=== PATIENT | male | born 1935 | race Caucasian/White ===

== ENCOUNTER 2017-06-12 12:43 | Day surgery (SDC) | payer MEDICARE, OTHER ==
[2006-10-22 11:25] VITALS: BP 145/69
[~2017-06-12] VITALS: Ht 172.7 cm; Wt 100.8 kg
[2017-06-12] VITALS (9 sets, daily range): BP systolic 95–146; BP diastolic 53–65; PULSE 56–64; TEMP 97.3–98.2
[~2017-06-12 12:43] MED LIST: ASPIRIN 81M81 MG/TA2 PO; B-121000 MCG PO; BENAZEPRIL; BENAZEPRIL20 MG PO; BETAPACE 80MG80 MG PO; BRILINTA90 MG PO; CALCIUM 600600 MG PO; CALCIUM600 M1 PO; CEPHALEXIN500 M1 PO; CLARITIN 1010 MG/TAB PO; CLARITIN10 MG PO; COUMADIN; COUMADIN 3MG3 MG/TAB PO; COUMADIN4 MG PO; CPAP; DETROL LA4 PO; DOXYCYCLINE 10100 MG PO; FLAXSEED OIL1000 MG PO; FOLIC ACID 11 MG/TA1 PO; FOLIC ACID1 MG PO; HCTZ; HYDROCHLOR50 MG PO; HYDROCORTISO28.35 GM TOP; HYGROTON50 MG PO; IMDUR 60MG60 MG/TAB PO; LOTENSIN40 MG PO; LOVENOX 100100 MG/ML SQ; LOVENOX 6060 MG/0.6 SQ; MONODOX100 PO; MOVANTIK25 MG PO; MULTIPLE VITAMI1 CTB PO; MULTIPLE VITAMI1 TA5 PO; MYRBETR25MG PO; NITROSTAT0.4 MG/TAB SL; NORCO 325 MG-51 TAB PO; NORCO 325 MG-7.1 TAB PO; NORVASC 5MG5 MG/TAB PO; OMEGA 31000 MG PO; PROTONIX 40MG T40 MG PO; RESTASIS 60VL IO; SOTALOL80 MG PO; THIAMINE 1100 MG/TAB PO; TOPROL XL100 MG PO; TOPROL XL50 MG PO; VITAMIN B COMPL1 T16 PO; VITAMIN B COMPL1 TA1 PO; VITAMIN B-100 MG/TAB PO; VITAMIN B-1000 MCG/T PO; VITAMIN B-6100 MG PO; VITAMIN C500 MG PO; WARFARIN4 MG PO; ZOCOR 10MG10 MG PO; ZOCOR10 MG PO
[2017-06-12] MEDS ORDERED: NORCO 325 MG-51 TAB PO (14:28)
[2017-06-12] MEDS ORDERED: DOXYCYCLINE 10100 MG PO (14:34)
[2017-06-12] MEDS ORDERED: HYSINGLA20 PO (14:41)
[2017-06-12] MEDS ORDERED: LOTEMAX 10 ML10 ML OP (14:41)
[2017-06-12] MEDS ORDERED: PROAIR HFA0.09 MG/AC IH (14:44)
[2017-06-12] MEDS ORDERED: FLONASEALLERGY NS (14:45)
[2017-06-13 00:58] VITALS: BP 117/51; PULSE 61; TEMP 96.6
[2017-06-13 06:15] VITALS: BP 145/58; PULSE 67; TEMP 98.9
[2017-06-13 10:24] VITALS: BP 128/55; PULSE 59; TEMP 98.2
== END 2017-06-13 13:00 | disposition home or self-care (01) ==
LOC: SDCO 12:43 → SURG 16:59 → SDCO 17:00
DX: N30.41 Irradiation cystitis with hematuria (principal); I48.91 Unspecified atrial fibrillation; Z79.01 Long term (current) use of anticoagulants; J45.909 Unspecified asthma, uncomplicated; M19.90 Unspecified osteoarthritis, unspecified site; M54.9 Dorsalgia, unspecified; C44.612 Basal cell carcinoma of skin of right upper limb, including shoulder; I25.10 Atherosclerotic heart disease of native coronary artery without angina pectoris; I10 Essential (primary) hypertension; E66.9 Obesity, unspecified; C61 Malignant neoplasm of prostate; G58.8 Other specified mononeuropathies; G47.30 Sleep apnea, unspecified; M48.00 Spinal stenosis, site unspecified
CPT/HCPCS: OP; A9284; J0690; J1100; J2405; J2704; J3010; J7030; Q9967

== ENCOUNTER → 2018-09-26 | Outpatient (CLI) | payer MEDICARE, OTHER ==
[2006-10-22 11:25] VITALS: BP 145/69
[~2018-09-26] VITALS: Ht 172.7 cm; Wt 102.3 kg
[~2018-09-26] MED LIST changes: +FLONASEALLERGY NS; +HYSINGLA20 PO; +LOTEMAX 10 ML10 ML OP; +PROAIR HFA0.09 MG/AC IH
[2018-09-26 09:20] VITALS: BP 139/67; PULSE 56; TEMP 96.8
== END ==
LOC: COL.ER 09:10 → COL.LAB 09:11 → EDSTATUS 09:31
PROVIDERS: Emergency Medicine
DX: D68.59 Other primary thrombophilia (principal)

== ENCOUNTER 2019-03-26 08:38 | Emergency (ER) | payer MEDICARE, OTHER ==
[2006-10-22 11:25] VITALS: BP 145/69
[~2019-03-26] VITALS: Ht 172.7 cm; Wt 102.2 kg
[2019-03-26 08:42] VITALS: BP 183/84; TEMP 98.1
[2019-03-26 09:20] LABS: BASO % 0.3 % (0.0-2.0); EOS # 0.2 (0.0-0.7); EOS % 2.4 % (0-4.0); GRAN # 5.6 (1.4-6.5); GRAN % 60.1 % (42.2-75.2); HEMOGLOBIN 15.1 g/dl (13.5-18.0); LYMPH # 2.7 (1.2-3.4); LYMPH % 28.8 % (20.0-51.0); MEAN CELL VOLUME 87 fl (80.0-100.0); MEAN CORPUSCULAR HEMOGLOBIN 29 pg (27.0-31.0); MEAN CORPUSCULAR HGB CONC 34 g/dl (33.0-37.0); MEAN PLATELET VOLUME 9.1 fl (7.4-10.4); MONO # 0.7 (0.1-0.6); MONO % 7.9 % (1.7-9.3); PLATELET COUNT 186 K/mm3 (130-400); RED BLOOD COUNT 5.16 M/mm3 (4.20-5.60); REDCELL DISTRIBUTION WIDTH-CV 14.7 % (11.5-14.5)
[2019-03-26 09:32] LABS: INR 3.2 (0.8-3.0); PROTHROMBIN TIME 35.9 SECONDS (9.7-12.8)
[2019-03-26] MEDS ORDERED: RESTASIS MULTI5.5 ML OP (09:38)
[2019-03-26] MEDS ORDERED: RT ADVAIR HFA 1112 G IH (09:40)
[2019-03-26 10:00] VITALS: PULSE 56
== END 2019-03-26 10:05 | disposition home or self-care (01) ==
LOC: COL.ER 08:38
PROVIDERS: Nurse Practitioner
DX: S50.811A Abrasion of right forearm, initial encounter (principal); R79.1 Abnormal coagulation profile; I48.91 Unspecified atrial fibrillation; I10 Essential (primary) hypertension; I25.10 Atherosclerotic heart disease of native coronary artery without angina pectoris; Z87.891 Personal history of nicotine dependence; Z79.01 Long term (current) use of anticoagulants; Z79.51 Long term (current) use of inhaled steroids; W22.8XXA Striking against or struck by other objects, initial encounter

== ENCOUNTER 2019-04-23 13:36 | Emergency (ER) | payer MEDICARE, OTHER ==
[2006-10-22 11:25] VITALS: BP 145/69
[~2019-04-23] VITALS: Ht 172.7 cm; Wt 100.0 kg
[~2019-04-23 13:36] MED LIST changes: +RESTASIS MULTI5.5 ML OP; +RT ADVAIR HFA 1112 G IH
[2019-04-23 13:51] VITALS: TEMP 98.3
[2019-04-23 15:17] LABS: BASO % 0.6 % (0.0-2.0); EOS # 0.2 (0.0-0.7); EOS % 2.8 % (0-4.0); GRAN # 3.8 (1.4-6.5); GRAN % 56.1 % (42.2-75.2); HEMATOCRIT 43.8 % (42.0-52.0); HEMOGLOBIN 14.6 g/dl (13.5-18.0); LYMPH % 30.2 % (20.0-51.0); MEAN CELL VOLUME 89 fl (80.0-100.0); MEAN CORPUSCULAR HEMOGLOBIN 30 pg (27.0-31.0); MEAN CORPUSCULAR HGB CONC 33 g/dl (33.0-37.0); MEAN PLATELET VOLUME 9.4 fl (7.4-10.4); MONO # 0.7 (0.1-0.6); MONO % 9.7 % (1.7-9.3); PLATELET COUNT 176 K/mm3 (130-400); RED BLOOD COUNT 4.94 M/mm3 (4.20-5.60); REDCELL DISTRIBUTION WIDTH-CV 14.5 % (11.5-14.5)
[2019-04-23 15:19] LABS: INR 4.2 (0.8-3.0)
[2019-04-23 15:22] LABS: PROTHROMBIN TIME 50.7 SECONDS (9.7-12.8)
[2019-04-23 15:25] LABS: CALCIUM 8.5 mg/dL (8.4-10.2); CREATININE, serum 0.79 (0.66-1.25); POTASSIUM 3.9 mmol/L (3.4-5.0)
[2019-04-23 17:10] VITALS: BP 115/65; PULSE 70
== END 2019-04-23 17:14 | disposition home or self-care (01) ==
LOC: COL.ER 13:36
PROVIDERS: Emergency Medicine
DX: S09.90XA Unspecified injury of head, initial encounter (principal); S01.511A Laceration without foreign body of lip, initial encounter; S20.212A Contusion of left front wall of thorax, initial encounter; R79.1 Abnormal coagulation profile; Z79.01 Long term (current) use of anticoagulants; Z79.51 Long term (current) use of inhaled steroids; W01.0XXA Fall on same level from slipping, tripping and stumbling without subsequent striking against object, initial encounter; Y92.009 Unspecified place in unspecified non-institutional (private) residence as the place of occurrence of the external cause

== ENCOUNTER 2019-08-13 18:49 | Inpatient (IN) | payer MEDICARE, OTHER ==
[2019-08-13] VITALS (42 sets, daily range): BP systolic 103–105; BP diastolic 69–75; PULSE 118; TEMP 97.8; O2SAT 95–97
[~2019-08-13] VITALS: Ht 172.7 cm; Wt 100.7 kg
[2019-08-13 19:23] LABS: BASO % 0.2 % (0.0-2.0); EOS % 0.1 % (0-4.0); GRAN # 8.3 (1.4-6.5); HEMATOCRIT 50.4 % (42.0-52.0); HEMOGLOBIN 16.7 g/dl (13.5-18.0); LYMPH # 2.5 (1.2-3.4); LYMPH % 20.5 % (20.0-51.0); MEAN CELL VOLUME 89 fl (80.0-100.0); MEAN CORPUSCULAR HEMOGLOBIN 29 pg (27.0-31.0); MEAN CORPUSCULAR HGB CONC 33 g/dl (33.0-37.0); MEAN PLATELET VOLUME 9.5 fl (7.4-10.4); MONO # 1.2 (0.1-0.6); MONO % 9.6 % (1.7-9.3); PLATELET COUNT 213 K/mm3 (130-400); RED BLOOD COUNT 5.69 M/mm3 (4.20-5.60); REDCELL DISTRIBUTION WIDTH-CV 13.5 % (11.5-14.5)
[2019-08-13 19:28] LABS: PROTHROMBIN TIME 11.6 SECONDS (9.7-12.8)
[2019-08-13 19:34] LABS: ALANINE AMINOTRANSFERASE 15 U/L (21-72); ALBUMIN 4.2 gm/dL (3.5-5.0); ALKALINE PHOSPHATASE 52 U/L (50-136); ANION GAP 8 mmol/L (7-16); AST,SGOT 25 U/L (15-37); BILIRUBIN,TOTAL 0.6 mg/dL (0.0-1.0); BLOOD UREA NITROGEN 22 mg/dL (9-20); CALCIUM 9.3 mg/dL (8.4-10.2); CARBON DIOXIDE 26 mmol/L (22-30); CHLORIDE 104 mmol/L (98-107); CREATININE, serum 0.77 (0.66-1.25); GLUCOSE 105 mg/dL (74-106); POTASSIUM 4.4 mmol/L (3.4-5.0); SODIUM 138 mmol/L (137-145); TOTAL PROTEIN 7.3 gm/dL (6.4-8.2)
[2019-08-13 19:54] LABS: TROPONIN-I < 0.012 ng/mL (0.000-0.035)
[2019-08-13] MEDS ORDERED: BRILINTA90 MG PO (20:20)
[2019-08-13] MEDS ORDERED: ASPIRIN E.C. 8181 MG PO (20:21)
--- NOTE | 2019-08-13 21:12 | NUR ---
Arrived to the unit via stretcher; alert and oriented and in no distress. Attached to all monitors. HR A-fib RVR ranging 90-140's. Garrison briceño currently running.
--- NOTE | 2019-08-13 22:51 | NUR ---
Patient placed CPAP independenly. On home settings.
[2019-08-13 23:03] LABS: COLLECTION METHOD CATHETER
[2019-08-13 23:10] LABS: PH 6 (5-8); SQUAMOUS EPITHELIAL None Seen /hpf; URINE APPEARANCE Clear; URINE BACTERIA None Seen /hpf; URINE BILIRUBIN Negative (NEGATIVE); URINE BLOOD Negative (NEGATIVE); URINE COLOR Straw; URINE GLUCOSE Negative (NEGATIVE); URINE KETONE Negative (NEGATIVE); URINE LEUKOCYTE ESTERASE Negative (NEGATIVE); URINE NITRATE Negative (NEGATIVE); URINE PROTEIN(semi-quant) Negative (NEGATIVE); URINE RBC 0-2 /hpf; URINE UROBILINOGEN Negative (NEGATIVE)
[2019-08-13] MEDS ORDERED: [UNRECOGNIZED DRUG - OTHER] TP (23:42)
[2019-08-13] MEDS ORDERED: SPIRIVA RESPIMAT4 GM IH (23:43)
[2019-08-13] MEDS ORDERED: NITROSTAT0.3 MG SL (23:49)
[2019-08-13] MEDS ORDERED: FLONASE NASAL S16 GM NS (23:52)
[2019-08-14] VITALS (723 sets, daily range): BP systolic 71–156; BP diastolic 60–109; PULSE 68–120; TEMP 97.6–98.2; O2SAT 88–97
--- NOTE | 2019-08-14 00:33 | NUR ---
Notified hospitalist regarding low BP readings and hr still ranging 100-140's on cardizem drip. Unable to titrate up due to hypotension. Patient asymptomatic otherwise. Currently wearing CPAP with no complaints. Called lab to obtain Troponin. Recived orders for digoxin and midodrine PO now.
--- NOTE | 2019-08-14 04:00 | NUR ---
Resting in bed with eyes shut; no complaints at this time.
--- NOTE | 2019-08-14 07:20 | NUR ---
Report received from Chanda MASTERS and care resumed.
[2019-08-14 07:44] LABS: HEMATOCRIT 48.5 % (42.0-52.0); HEMOGLOBIN 16.4 g/dl (13.5-18.0); MEAN CELL VOLUME 89 fl (80.0-100.0); MEAN CORPUSCULAR HEMOGLOBIN 30 pg (27.0-31.0); MEAN CORPUSCULAR HGB CONC 34 g/dl (33.0-37.0); MEAN PLATELET VOLUME 9.6 fl (7.4-10.4); PLATELET COUNT 209 K/mm3 (130-400); RED BLOOD COUNT 5.45 M/mm3 (4.20-5.60); REDCELL DISTRIBUTION WIDTH-CV 13.8 % (11.5-14.5)
[2019-08-14 07:55] LABS: ANION GAP 6 mmol/L (7-16); BLOOD UREA NITROGEN 20 mg/dL (9-20); CALCIUM 8.9 mg/dL (8.4-10.2); CARBON DIOXIDE 25 mmol/L (22-30); CHLORIDE 107 mmol/L (98-107); CREATININE, serum 0.66 (0.66-1.25); GLUCOSE 110 mg/dL (74-106); POTASSIUM 4.2 mmol/L (3.4-5.0); SODIUM 138 mmol/L (137-145)
[2019-08-14 08:09] LABS: TROPONIN-I < 0.012 ng/mL (0.000-0.035)
--- NOTE | 2019-08-14 10:21 | NUR ---
Dr Mandujano notified of consult and in to see pt at this time.
--- NOTE | 2019-08-14 11:38 | NUR ---
Plan: To return home with Sammie as care [phone]. is also listed as patients emergency support. DPOA is also .They reside in [facility]. Assess: SW met with patient and was also present. Patient gave permission to discuss information in front of . Patient reports that he uses a walker to get around at home as well as a CPAP machine and an inhaler. Patient reports that her PCP is Dr. Morocho( who will be retiring), and then Dr. George, with patient alreadyig having a follow up appointment last week. Patient reports that she gets her medications from [facility] [address], and he uses [facility], with some problems obtaining medications from [facility]. Patient denied having any current care concerns, and denied a need for home health services currently. Plan: No additional concerns identified at this time. We did discuss future plans, and the [facility] indicated [facility] Patient educated on community resources and supports.
--- NOTE | 2019-08-14 14:27 | NUR ---
Report given to Mary Beth MASTERS. Pt to transfer to room 356 with tele. Will continue to follow.
--- NOTE | 2019-08-14 15:00 | NUR ---
Pt having pauses, verbal order per Dr Cuellar to stop Garrison.
--- NOTE | 2019-08-14 19:01 | NUR ---
Report given to Chanda MASTERS and care transfered.
--- NOTE | 2019-08-14 23:50 | NUR ---
Assisted to use the urinal. Patient placed CPAP per home settings after toileting. Dr. Mcghee notified regarding continued tachycardia. Ok with HR unless sustained greater thatn 140's. Will continue to monitor.
[2019-08-15] VITALS (189 sets, daily range): BP systolic 125–179; BP diastolic 58–82; PULSE 52–65; TEMP 97.6–98; O2SAT 81–97
--- NOTE | 2019-08-15 00:45 | NUR ---
Converted to SR; confirmed via EKG. HR 55-60. Patient has no concerns at this time.
[2019-08-15 05:52] LABS: BASO % 0.2 % (0.0-2.0); EOS # 0.2 (0.0-0.7); EOS % 1.7 % (0-4.0); GRAN # 6.8 (1.4-6.5); GRAN % 58.8 % (42.2-75.2); HEMATOCRIT 51.3 % (42.0-52.0); LYMPH # 3.3 (1.2-3.4); LYMPH % 28.9 % (20.0-51.0); MEAN CELL VOLUME 89 fl (80.0-100.0); MEAN CORPUSCULAR HEMOGLOBIN 29 pg (27.0-31.0); MEAN CORPUSCULAR HGB CONC 33 g/dl (33.0-37.0); MEAN PLATELET VOLUME 9.7 fl (7.4-10.4); MONO # 1.1 (0.1-0.6); MONO % 9.4 % (1.7-9.3); PLATELET COUNT 187 K/mm3 (130-400); RED BLOOD COUNT 5.79 M/mm3 (4.20-5.60); REDCELL DISTRIBUTION WIDTH-CV 13.7 % (11.5-14.5)
[2019-08-15 06:04] LABS: CALCIUM 9.2 mg/dL (8.4-10.2); CREATININE, serum 0.83 (0.66-1.25); POTASSIUM 4.4 mmol/L (3.4-5.0)
--- NOTE | 2019-08-15 06:17 | NUR ---
Assisted to use the urinal at bedside. Requested to dangle for a few minutes,then assisted back to bed. Denies any complaints at this time.
--- NOTE | 2019-08-15 09:42 | NUR ---
Dr Park in to see pt. Pt being set up at this time for loop recorder placement.
[2019-08-15] MEDS ORDERED: BETAPACE 120MG120 MG PO (10:58)
[2019-08-15] MEDS ORDERED: CEPHALEXIN500 M1 PO (11:12)
[2019-08-15] MEDS ORDERED: ELIQUIS 5MG PO (11:14)
--- NOTE | 2019-08-15 11:29 | NUR ---
Initial visit; Patient and his thanked Oil Tank Car Cleaner for looking in on Nickolas, offering comfort and God's blessings. Their Supervisor Coal Handling had been with them earlier.
== END 2019-08-15 16:04 | disposition home or self-care (01) | DRG 262 ==
LOC: COL.ER 18:49 → ICU 19:59
PROVIDERS: Emergency Medicine; Student in an Organized Health Care Education/Training Program; ADMIT Student in an Organized Health Care Education/Training Program
PROC: 0JH602Z Insertion of Monitoring Device into Chest Subcutaneous Tissue and Fascia, Open Approach (ICD-10-PCS; principal; 2019-08-13)
DX: I48.0 Paroxysmal atrial fibrillation (principal); Z79.01 Long term (current) use of anticoagulants; Z85.46 Personal history of malignant neoplasm of prostate; I25.10 Atherosclerotic heart disease of native coronary artery without angina pectoris; Z95.5 Presence of coronary angioplasty implant and graft; E11.9 Type 2 diabetes mellitus without complications; I10 Essential (primary) hypertension; Z87.891 Personal history of nicotine dependence; I95.9 Hypotension, unspecified; D72.829 Elevated white blood cell count, unspecified; E78.5 Hyperlipidemia, unspecified; G47.33 Obstructive sleep apnea (adult) (pediatric); M46.90 Unspecified inflammatory spondylopathy, site unspecified
CPT/HCPCS: 99239; C1764; J7030; J7040

== ENCOUNTER → 2019-09-16 | Outpatient (CLI) | payer MEDICARE, OTHER ==
[~2019-09-16] MED LIST changes: +ASPIRIN E.C. 8181 MG PO; +BETAPACE 120MG120 MG PO; +ELIQUIS 5MG PO; +FLONASE NASAL S16 GM NS; +NITROSTAT0.3 MG SL; +SPIRIVA RESPIMAT4 GM IH; +[UNRECOGNIZED DRUG - OTHER] TP
== END ==
LOC: COL.CARD 11:40
DX: M25.552 Pain in left hip (principal); M19.90 Unspecified osteoarthritis, unspecified site

== ENCOUNTER → 2019-09-22 | Outpatient (CLI) | payer MEDICARE, OTHER | LOC: COL.RAD 12:10 | DX: M16.12 Unilateral primary osteoarthritis, left hip (principal) | CPT/HCPCS: J3301; Q9967 ==

== ENCOUNTER → 2019-10-14 | Outpatient (CLI) | payer MEDICARE, OTHER | LOC: COL.RAD 09:57 | DX: M25.552 Pain in left hip (principal) | CPT/HCPCS: J3301; Q9967 ==

== ENCOUNTER → 2020-01-18 | Outpatient (CLI) | payer MEDICARE, OTHER | LOC: COL.RAD 10:16 | DX: M16.12 Unilateral primary osteoarthritis, left hip (principal) | CPT/HCPCS: J3301; Q9967 ==

== ENCOUNTER → 2020-04-09 | Outpatient (CLI) | payer MEDICARE, OTHER | LOC: COL.RAD 10:26 | DX: M25.552 Pain in left hip (principal) | CPT/HCPCS: J3301; Q9967 ==

== ENCOUNTER 2021-01-17 07:19 | Day surgery (SDC) | payer MEDICARE, OTHER ==
[2006-10-22 11:25] VITALS: BP 145/69
[2021-01-17] VITALS (13 sets, daily range): BP systolic 95–142; BP diastolic 56–99; PULSE 53–67; TEMP 97.6–982
[~2021-01-17] VITALS: Ht 172.7 cm; Wt 99.6 kg
[~2021-01-17 07:19] MED LIST changes: +NORVASC 10MG10 MG PO; -RT ADVAIR HFA 1112 G IH; +RT ADVAIR HFA 2312 G IH; +SPIRIVA RE2.5 MCG/Ac IH; -SPIRIVA RESPIMAT4 GM IH
[2021-01-17 08:10] LABS: HEMATOCRIT 46.6 % (42.0-52.0); HEMOGLOBIN 15.5 g/dl (13.5-18.0); MEAN CELL VOLUME 89 fl (80.0-100.0); MEAN CORPUSCULAR HEMOGLOBIN 30 pg (27.0-31.0); MEAN CORPUSCULAR HGB CONC 33 g/dl (33.0-37.0); MEAN PLATELET VOLUME 9.2 fl (7.4-10.4); PLATELET COUNT 157 K/mm3 (130-400); RED BLOOD COUNT 5.22 M/mm3 (4.20-5.60); REDCELL DISTRIBUTION WIDTH-CV 13.5 % (11.5-14.5)
[2021-01-17 08:18] LABS: INR 1.1 (0.8-3.0)
[2021-01-17 08:19] LABS: CALCIUM 9.8 mg/dL (8.4-10.2); CREATININE, serum 0.87 (0.66-1.25); POTASSIUM 4.2 mmol/L (3.4-5.0)
[2021-01-17] MEDS ORDERED: NITROSTAT0.4 MG/TAB SL (08:41)
--- NOTE | 2021-01-17 09:47 | NUR ---
SEE MERGE DOCUMENTATION FOR MEDICATION ADMINISTRATION TIMES AND INTRA/POST PROCEDURE SEDATION ASSESSMENTS.
--- NOTE | 2021-01-17 12:02 | NUR ---
PT TO ROOM 317 WITH REPORT FROM ELSIE MASTERS [email or web address]. PT IS A/OX3, LUNGS CTA, BOWEL SOUNDS PRESENT. TELE INPLACE BUT REPLACING BOX NOT WORKING. INCISION TO LEFT UPPER CHEST CDI WITH GAUZE AND TAPE OVER SITE. LOOP RECORDERS REMOVED SITE GLUED AND GAUZE AND TAPE. LEFT ARM IN SLING. IV TO RIGHT HAND.
--- NOTE | 2021-01-17 17:20 | NUR ---
PT HIT ELBOW ON TABLE WHEN ANSWERING PHONE. DRESSED SM SKIN TEAR WITH TELFA AND TEGADERM.
[2021-01-18] VITALS (9 sets, daily range): BP systolic 76–144; BP diastolic 40–69; PULSE 56–63; TEMP 97.3–98.5
--- NOTE | 2021-01-18 07:00 | NUR ---
Report received from nightshift nurse, pt in bed resting with CPAP in place, denies needs, will continue to monitor.
[2021-01-18 07:09] LABS: BASO % 0.5 % (0.0-2.0); EOS # 0.4 (0.0-0.7); EOS % 5.2 % (0-4.0); GRAN % 50.6 % (42.2-75.2); HEMATOCRIT 48.8 % (42.0-52.0); HEMOGLOBIN 16.2 g/dl (13.5-18.0); LYMPH # 2.6 (1.2-3.4); LYMPH % 33.5 % (20.0-51.0); MEAN CELL VOLUME 90 fl (80.0-100.0); MEAN CORPUSCULAR HEMOGLOBIN 30 pg (27.0-31.0); MEAN CORPUSCULAR HGB CONC 33 g/dl (33.0-37.0); MEAN PLATELET VOLUME 9.6 fl (7.4-10.4); MONO # 0.8 (0.1-0.6); MONO % 9.8 % (1.7-9.3); PLATELET COUNT 158 K/mm3 (130-400); RED BLOOD COUNT 5.42 M/mm3 (4.20-5.60); REDCELL DISTRIBUTION WIDTH-CV 13.7 % (11.5-14.5)
[2021-01-18 07:20] LABS: ALBUMIN 3.9 gm/dL (3.5-5.0); BILIRUBIN,TOTAL 0.4 mg/dL (0.0-1.0); CALCIUM 9.7 mg/dL (8.4-10.2); CREATININE, serum 0.8 (0.66-1.25); POTASSIUM 4.1 mmol/L (3.4-5.0); TOTAL PROTEIN 6.9 gm/dL (6.4-8.2)
--- NOTE | 2021-01-18 08:14 | NUR ---
Assessment charted. INT to LH. Pt wearing sling. Up to bathroom independetnly. Device interrogation complete. Some bruising above pacemaker site but site itself is CDI as well as loop site. Denies pain, will order breakfast shortly. Will continue to monitor.
--- NOTE | 2021-01-18 09:46 | NUR ---
SWATHI met with the patient to discuss discharge plan. The patient lives in [place] with his , Sammie (ph#[phone]). He reports independence with ADLs and has a cane and CPAP. The patient's PCP is Dr. Jon Lindquist and he receives his medications from [facility]. The patient does not have a DPOA-HC, but he states that he does have one completed and that it should designate his . He states that his PCP's office should have a copy. SWATHI contacted Dayana at Dr. Lindquist's office and requested a copy. Dayana states that she will fax the document to the medical unit. The patient plans to return home with his upon discharge. No additional needs at this time.
--- NOTE | 2021-01-18 10:59 | NUR ---
SW received the patient's DPOA-HC, via fax. SW placed the document in the patient's chart. The patient's DPOA-HC is his .
[2021-01-18] MEDS ORDERED: CEPHALEXIN500 M1 PO (11:34)
--- NOTE | 2021-01-18 12:26 | NUR ---
Pt BP dropped significantly at noon vitals, paged and got new orders, infusing. Updated pt and will continue to mointor.
--- NOTE | 2021-01-18 15:31 | NUR ---
Pt BP elevated to 98 SBP, called Dr. Park and told him updated BP and he consented to discharge patient. Pt discharge teachign completed at this time. INT dc'd, tip intact. Discharge paperwork reviewed, answered all questions, reviewed f/u appointments. Pt escorted out via wheelchair, left with all belonigngs, to drive home, criteria met.
== END 2021-01-18 14:30 | disposition home or self-care (01) ==
LOC: COL.CAR → MEDICAL 11:12 → COL.CAR 01-18 14:30
PROVIDERS: Internal Medicine Cardiovascular Disease
DX: I48.0 Paroxysmal atrial fibrillation (principal); I49.5 Sick sinus syndrome; I25.10 Atherosclerotic heart disease of native coronary artery without angina pectoris; I10 Essential (primary) hypertension; I08.0 Rheumatic disorders of both mitral and aortic valves; J45.909 Unspecified asthma, uncomplicated; I48.92 Unspecified atrial flutter; E78.5 Hyperlipidemia, unspecified; Z79.899 Other long term (current) drug therapy; Z79.02 Long term (current) use of antithrombotics/antiplatelets; Z79.01 Long term (current) use of anticoagulants; Z79.82 Long term (current) use of aspirin; Z79.891 Long term (current) use of opiate analgesic; Z87.891 Personal history of nicotine dependence; Z95.818 Presence of other cardiac implants and grafts; Z95.1 Presence of aortocoronary bypass graft; Z20.822 Contact with and (suspected) exposure to COVID-19
CPT/HCPCS: OP; C1769; C1785; C1894; C1898; J0690; J2250; J3010; J7030; J7040; Q9967

== ENCOUNTER 2021-02-20 18:42 | Emergency (ER) | payer MEDICARE, OTHER ==
[2006-10-22 11:25] VITALS: BP 145/69
[~2021-02-20] VITALS: Ht 172.7 cm; Wt 106.8 kg
[2021-02-20 20:24] VITALS: BP 128/66; PULSE 63; TEMP 97.4
== END 2021-02-20 20:24 | disposition home or self-care (01) ==
LOC: COL.ER 18:42
DX: S51.012A Laceration without foreign body of left elbow, initial encounter (principal); S80.212A Abrasion, left knee, initial encounter; I48.91 Unspecified atrial fibrillation; E11.9 Type 2 diabetes mellitus without complications; I10 Essential (primary) hypertension; E66.9 Obesity, unspecified; I25.10 Atherosclerotic heart disease of native coronary artery without angina pectoris; Z95.5 Presence of coronary angioplasty implant and graft; Z85.828 Personal history of other malignant neoplasm of skin; Z85.46 Personal history of malignant neoplasm of prostate; Z79.84 Long term (current) use of oral hypoglycemic drugs; Z90.79 Acquired absence of other genital organ(s); Z96.642 Presence of left artificial hip joint; Z79.01 Long term (current) use of anticoagulants; Z79.51 Long term (current) use of inhaled steroids; Z79.82 Long term (current) use of aspirin; Z79.891 Long term (current) use of opiate analgesic; Z79.899 Other long term (current) drug therapy; Z23 Encounter for immunization; Z95.0 Presence of cardiac pacemaker; W01.198A Fall on same level from slipping, tripping and stumbling with subsequent striking against other object, initial encounter; Y92.410 Unspecified street and highway as the place of occurrence of the external cause

== ENCOUNTER 2021-05-08 06:27 | Inpatient (IN) | payer MEDICARE, OTHER ==
[~2021-05-08] VITALS: Ht 172.7 cm; Wt 100.0 kg
[2021-05-08 07:00] LABS: BASO # 0.1 (0.0-0.2); BASO % 0.8 % (0.0-2.0); EOS # 0.4 (0.0-0.7); EOS % 5.4 % (0-4.0); GRAN # 2.8 (1.4-6.5); HEMATOCRIT 45.5 % (42.0-52.0); LYMPH # 2.6 (1.2-3.4); LYMPH % 40.4 % (20.0-51.0); MEAN CELL VOLUME 90 fl (80.0-100.0); MEAN CORPUSCULAR HEMOGLOBIN 30 pg (27.0-31.0); MEAN CORPUSCULAR HGB CONC 33 g/dl (33.0-37.0); MEAN PLATELET VOLUME 9.5 fl (7.4-10.4); MONO # 0.6 (0.1-0.6); MONO % 8.9 % (1.7-9.3); PLATELET COUNT 163 K/mm3 (130-400); RED BLOOD COUNT 5.04 M/mm3 (4.20-5.60); REDCELL DISTRIBUTION WIDTH-CV 13.4 % (11.5-14.5)
[2021-05-08 07:10] LABS: ALANINE AMINOTRANSFERASE 16 U/L (4-49); ALBUMIN 3.7 gm/dL (3.5-5.0); ALKALINE PHOSPHATASE 54 U/L (50-136); ANION GAP 4 mmol/L (7-16); AST,SGOT 23 U/L (15-37); BILIRUBIN,TOTAL 0.6 mg/dL (0.0-1.0); BLOOD UREA NITROGEN 19 mg/dL (9-20); CALCIUM 9.6 mg/dL (8.4-10.2); CARBON DIOXIDE 30 mmol/L (22-30); CHLORIDE 104 mmol/L (98-107); GLUCOSE 110 mg/dL (74-106); SODIUM 138 mmol/L (137-145); TOTAL PROTEIN 6.5 gm/dL (6.4-8.2)
[2021-05-08 07:27] LABS: TROPONIN-I < 0.012 ng/mL (0.000-0.035)
[2021-05-08] MEDS ORDERED: PROTONIX 40MG T40 MG PO (10:36)
[2021-05-08] MEDS ORDERED: MOVANTIK25 MG PO (10:37)
[2021-05-08] MEDS ORDERED: RESTASIS MULTI5.5 ML OP (10:38)
[2021-05-08 16:45] VITALS: BP 171/77; PULSE 62; TEMP 98.1
--- NOTE | 2021-05-08 17:29 | NUR ---
Admission assessment completed, alert/oriented, vital signs stable, denies pain or discomfort, reports dizziness with ambulation, his gait is steady with stand by assist, heart RRR/ SR on tele, has pacemaker with hx of A.fib, lungs CTA/ no resp.difficulty, Cardiology consulted and has seen patient, plans for Heart cath 05/09 or 05/10, meds/allergies/pharmacy reviewed with patient and his , patient denies other needs at this time
[2021-05-08 20:10] VITALS: BP 145/69; PULSE 60; TEMP 97.8
--- NOTE | 2021-05-08 23:47 | NUR ---
PT SLEEPING WHEN DOING ASSESSMENT TONIGHT. WAKES UP BREIFLY. HAS CPAP ON. PM MEDS GIVEN AND POC DISCUSSED. CALL LIGHT WI REACH. NEEDS MET.
[2021-05-09] VITALS (20 sets, daily range): BP systolic 90–172; BP diastolic 46–86; PULSE 48–70; TEMP 97.6–98.6
--- NOTE | 2021-05-09 05:16 | NUR ---
RESTED THROUGH THE NIGHT WITHOUT INCIDENT. NEEDS MET.
[2021-05-09 07:21] LABS: ANION GAP 2 mmol/L (7-16); BLOOD UREA NITROGEN 15 mg/dL (9-20); CALCIUM 9.6 mg/dL (8.4-10.2); CARBON DIOXIDE 32 mmol/L (22-30); CHLORIDE 104 mmol/L (98-107); CREATININE, serum 0.84 (0.66-1.25); GLUCOSE 96 mg/dL (74-106); POTASSIUM 3.9 mmol/L (3.4-5.0); SODIUM 138 mmol/L (137-145)
[2021-05-09 07:32] LABS: TROPONIN-I < 0.012 ng/mL (0.000-0.035)
[2021-05-09 07:44] LABS: MAGNESIUM 1.7 mg/dL (1.6-2.3)
--- NOTE | 2021-05-09 08:10 | NUR ---
Shift assessment complete. Resting in bed, at bedside. A&Ox4. Heart RRR. Denies chest pain. Lungs CTA. Mild pitting edema to BLE, right foot slightly worse than left. Reports some tenderness to touch on right foot. Also reports mild abdominal cramping and no BM for 3-4 days. Will follow up w/provider about stool softener this morning. Pt NPO since midnight for planned heart cath this morning. Denies needs at this time. Continuing to monitor.
--- NOTE | 2021-05-09 10:30 | NUR ---
Pt off unit for heart cath at this time.
--- NOTE | 2021-05-09 10:56 | NUR ---
SEE MERGE DOCUMENTATION FOR MEDICATION ADMINISTRATION TIMES AND INTRA/POST PROCEDURE SEDATION ASSESSMENTS.
--- NOTE | 2021-05-09 12:06 | NUR ---
Pt back in room following heart cath. Post-op vitals started, all vitals stable. TR band in place to right wrist w/10 ccs of air. Pt denies pain. Continuing to monitor.
--- NOTE | 2021-05-09 19:38 | NUR ---
REPORT RECEIVED FROM DAY SHIFT NURSE. PATIENT RESTING IN BED. ALERT AND ORIENTED X4. DENIES DIZZINESS AT THIS TIME. P/O CARDIAC CATH TODAY, TR BAND TO RIGHT WRIST, NO BLEEDING NOTED. DENIES ANY CHEST PAIN. EDMOND LE WITH +2 EDEMA. WILL CONTINUE TO MONITOR.
[2021-05-10] VITALS (7 sets, daily range): BP systolic 103–133; BP diastolic 57–61; PULSE 59–61; TEMP 97.6–98.3
[2021-05-10 06:57] LABS: HEMATOCRIT 46.3 % (42.0-52.0); HEMOGLOBIN 15.2 g/dl (13.5-18.0); MEAN CELL VOLUME 89 fl (80.0-100.0); MEAN CORPUSCULAR HEMOGLOBIN 29 pg (27.0-31.0); MEAN CORPUSCULAR HGB CONC 33 g/dl (33.0-37.0); MEAN PLATELET VOLUME 9.5 fl (7.4-10.4); PLATELET COUNT 151 K/mm3 (130-400); RED BLOOD COUNT 5.19 M/mm3 (4.20-5.60); REDCELL DISTRIBUTION WIDTH-CV 13.3 % (11.5-14.5)
[2021-05-10 07:10] LABS: CALCIUM 9.5 mg/dL (8.4-10.2); CREATININE, serum 0.77 (0.66-1.25); MAGNESIUM 1.9 mg/dL (1.6-2.3); POTASSIUM 3.9 mmol/L (3.4-5.0)
[2021-05-10] MEDS ORDERED: FLORINEF ACETA0.1 MG PO (09:49)
--- NOTE | 2021-05-10 10:59 | NUR ---
Pt assessment completed and charted, meds administered per jan. Discussed w/ hospitalist, lisinopril held for soft BP. Pt denies dizziness at rest, c/o dizziness w/ ambulation. Pt denies chest pain, abd pain, N/V/D, numbness or tingling. No further needs expressed at this time. Pt remains on room air.
--- NOTE | 2021-05-10 13:29 | NUR ---
MYLES staffed with this Stereotyper Helper regarding the patient inquiring about home health. SWATHI contacted the patient's , Sammie to complete intake. The patient lives in [place] with Sammie. The patient has a walker and cane. He is independent with ADLs. The patient's PCP is Dr. Lindquist and patient receives medications from [facility]. The patient has advanced directives in the EMR. SWATHI discussed Medicare.gov's list of home health. She chose [facility] The plan is to return home with [facility]. Referral faxed. Awaiting screen. Shortly after discussing discharge with Sammie, SWATHI reviewed the PT note and they recommend to consider post acute rehab options. SWATHI met with the patient to discuss [employer]'s list of SNF. SWATHI addressed the patient's dizziness and safety at home. The patient needed time to think about it. SWATHI again met with the patient states he discussed SNF with his and they decided to go home with home health. The patient to have an MRI later this day. *Discharge disposition at this time: Home with home health. PT/OT/Nursing
--- NOTE | 2021-05-10 16:24 | NUR ---
The patient to discharge home today, 05/10 with [facility]. PT/OT/Nursing services. Discharge orders and discharge summary faxed. There are no additional needs.
--- NOTE | 2021-05-10 17:42 | NUR ---
Discharge paperwork reviewed with the patient. The patient verbalized an understanding to follow doctors orders. IV removed, tip intact, gauze and coban applied. Patient tried calling his , but she did not answer. Chair alarm on. Call light within reach
--- NOTE | 2021-05-10 18:08 | NUR ---
Patient taken by wheelchair to ER entrance. Discharge paperwork and personal belongings with the patient.
== END 2021-05-10 18:09 | disposition home health service (06) | DRG 287 ==
LOC: COL.ER 06:27 → MEDICAL 10:16
PROVIDERS: Personal Emergency Response Attendant; Physician Assistant; ADMIT Internal Medicine
PROC: 4A03X5D Measurement of Arterial Flow, Intracranial, External Approach (ICD-10-PCS; 2021-05-08)
PROC: 4A03X5D Measurement of Arterial Flow, Intracranial, External Approach (ICD-10-PCS; 2021-05-08)
PROC: 4A023N7 Measurement of Cardiac Sampling and Pressure, Left Heart, Percutaneous Approach (ICD-10-PCS; principal; 2021-05-09)
PROC: B2111ZZ Fluoroscopy of Multiple Coronary Arteries using Low Osmolar Contrast (ICD-10-PCS; 2021-05-09)
PROC: B2151ZZ Fluoroscopy of Left Heart using Low Osmolar Contrast (ICD-10-PCS; 2021-05-09)
DX: I95.1 Orthostatic hypotension (principal); I48.91 Unspecified atrial fibrillation; I25.10 Atherosclerotic heart disease of native coronary artery without angina pectoris; M19.90 Unspecified osteoarthritis, unspecified site; J45.909 Unspecified asthma, uncomplicated; I10 Essential (primary) hypertension; E66.9 Obesity, unspecified; M54.30 Sciatica, unspecified side; R10.13 Epigastric pain; G47.33 Obstructive sleep apnea (adult) (pediatric); K59.00 Constipation, unspecified; E83.42 Hypomagnesemia; M79.9 Soft tissue disorder, unspecified; Z79.01 Long term (current) use of anticoagulants; Z95.5 Presence of coronary angioplasty implant and graft; Z85.46 Personal history of malignant neoplasm of prostate; Z85.828 Personal history of other malignant neoplasm of skin; Z95.0 Presence of cardiac pacemaker; Z79.82 Long term (current) use of aspirin; Z68.33 Body mass index [BMI] 33.0-33.9, adult; Z20.822 Contact with and (suspected) exposure to COVID-19
CPT/HCPCS: 99222-AI; 99232-AI; 99239; C1769; J1644; J2250; J3010; J3475; J7030; Q9967

== ENCOUNTER 2021-05-26 09:03 | Emergency (ER) | payer MEDICARE, OTHER ==
[~2021-05-26] VITALS: Ht 172.7 cm; Wt 104.5 kg
[~2021-05-26 09:03] MED LIST changes: +FLORINEF ACETA0.1 MG PO
[2021-05-26 09:25] VITALS: TEMP 98
[2021-05-26 10:54] LABS: BASO % 0.1 % (0.0-2.0); GRAN # 6.9 (1.4-6.5); GRAN % 77.7 % (42.2-75.2); HEMATOCRIT 45.7 % (42.0-52.0); HEMOGLOBIN 14.9 g/dl (13.5-18.0); LYMPH # 1.5 (1.2-3.4); LYMPH % 16.4 % (20.0-51.0); MEAN CELL VOLUME 91 fl (80.0-100.0); MEAN CORPUSCULAR HEMOGLOBIN 30 pg (27.0-31.0); MEAN CORPUSCULAR HGB CONC 33 g/dl (33.0-37.0); MEAN PLATELET VOLUME 9.3 fl (7.4-10.4); MONO # 0.5 (0.1-0.6); MONO % 5.2 % (1.7-9.3); PLATELET COUNT 176 K/mm3 (130-400); RED BLOOD COUNT 5.01 M/mm3 (4.20-5.60); REDCELL DISTRIBUTION WIDTH-CV 13.3 % (11.5-14.5)
[2021-05-26 11:04] LABS: ALBUMIN 3.5 gm/dL (3.5-5.0); BILIRUBIN,TOTAL 0.4 mg/dL (0.0-1.0); CALCIUM 9.4 mg/dL (8.4-10.2); CREATININE, serum 0.79 (0.66-1.25); POTASSIUM 4.5 mmol/L (3.4-5.0); TOTAL PROTEIN 6.2 gm/dL (6.4-8.2)
[2021-05-26] MEDS ORDERED: NORVASC 5MG5 MG/TAB PO (11:20)
[2021-05-26 11:40] VITALS: BP 178/85; PULSE 59
== END 2021-05-26 11:40 | disposition home or self-care (01) ==
LOC: COL.ER 09:03
PROVIDERS: Personal Emergency Response Attendant
DX: I10 Essential (primary) hypertension (principal); J45.909 Unspecified asthma, uncomplicated; I25.10 Atherosclerotic heart disease of native coronary artery without angina pectoris; I48.91 Unspecified atrial fibrillation; Z87.891 Personal history of nicotine dependence; Z95.5 Presence of coronary angioplasty implant and graft; Z79.01 Long term (current) use of anticoagulants; Z79.82 Long term (current) use of aspirin; Z79.899 Other long term (current) drug therapy

== ENCOUNTER → 2021-06-19 | Outpatient (CLI) | payer MEDICARE, OTHER | LOC: COL.RAD 08:18 | DX: R90.82 White matter disease, unspecified (principal); G31.89 Other specified degenerative diseases of nervous system; R42 Dizziness and giddiness | CPT/HCPCS: A9585 ==

== ENCOUNTER 2022-07-12 14:20 | Emergency (ER) | payer MEDICARE, OTHER ==
[~2022-07-12] VITALS: Ht 172.7 cm; Wt 97.3 kg
[2022-07-12 14:30] VITALS: TEMP 98.5
[2022-07-12 15:39] LABS: BASO % 0.4 % (0.0-2.0); EOS # 0.2 K/mm3 (0.0-0.7); EOS % 2.7 % (0.0-4.0); GRAN % 53.6 % (42.2-75.2); HEMOGLOBIN 14.1 g/dl (13.5-18.0); LYMPH # 2.5 K/mm3 (1.2-3.4); LYMPH % 33.4 % (20.0-51.0); MEAN CELL VOLUME 89 fl (80.0-100.0); MEAN CORPUSCULAR HEMOGLOBIN 30 pg (27-31); MEAN CORPUSCULAR HGB CONC 34 g/dl (33.0-37.0); MEAN PLATELET VOLUME 9.2 fl (7.4-10.4); MONO # 0.7 K/mm3 (0.1-0.6); MONO % 9.4 % (1.7-9.3); PLATELET COUNT 165 K/mm3 (130-400); RED BLOOD COUNT 4.73 M/mm3 (4.20-5.60); REDCELL DISTRIBUTION WIDTH-CV 14.9 % (11.5-14.5)
[2022-07-12 15:53] LABS: BILIRUBIN,TOTAL 0.8 mg/dL (0.2-1.2); C-REACTIVE PROTEIN 0.49 mg/dL (0.00-0.50); CALCIUM 9.3 mg/dL (8.4-10.2); CREATININE, serum 0.98 mg/dL (0.72-1.25); POTASSIUM 4.2 mmol/L (3.5-4.5); TOTAL PROTEIN 5.9 gm/dL (6.2-8.1)
[2022-07-12 16:57] VITALS: BP 110/61; PULSE 80
== END 2022-07-12 17:00 | disposition home or self-care (01) ==
LOC: COL.ER 14:20
PROVIDERS: Physician Assistant
DX: M25.572 Pain in left ankle and joints of left foot (principal); I48.91 Unspecified atrial fibrillation; Z79.01 Long term (current) use of anticoagulants

== ENCOUNTER 2022-12-03 11:52 | Inpatient (IN) | payer MEDICARE, OTHER ==
[~2022-12-03] VITALS: Ht 172.7 cm; Wt 91.4 kg
[~2022-12-03 11:52] MED LIST changes: +HYDROCORTISONE30 G3 TP; +LOTENSIN20 MG PO; -LOTENSIN40 MG PO; -OMEGA 31000 MG PO; +OMEGA-3 1000 MG1 CAP PO; -[UNRECOGNIZED DRUG - OTHER] TP
[2022-12-03 12:23] LABS: BASO % 0.5 % (0.0-2.0); EOS # 0.2 K/mm3 (0.0-0.7); EOS % 1.8 % (0.0-4.0); GRAN # 4.7 K/mm3 (1.4-6.5); GRAN % 57.6 % (42.2-75.2); HEMATOCRIT 41.6 % (42.0-52.0); HEMOGLOBIN 13.5 g/dl (13.5-18.0); LYMPH # 2.4 K/mm3 (1.2-3.4); MEAN CELL VOLUME 91 fl (80.0-100.0); MEAN CORPUSCULAR HEMOGLOBIN 30 pg (27-31); MEAN CORPUSCULAR HGB CONC 33 g/dl (33.0-37.0); MEAN PLATELET VOLUME 9.8 fl (7.4-10.4); MONO # 0.8 K/mm3 (0.1-0.6); MONO % 9.9 % (1.7-9.3); PLATELET COUNT 179 K/mm3 (130-400); RED BLOOD COUNT 4.58 M/mm3 (4.20-5.60); REDCELL DISTRIBUTION WIDTH-CV 14.4 % (11.5-14.5)
[2022-12-03 12:35] LABS: ALBUMIN 2.8 gm/dL (3.4-4.8); BILIRUBIN,TOTAL 0.9 mg/dL (0.2-1.2); CALCIUM 8.9 mg/dL (8.4-10.2); CREATININE, serum 1.01 mg/dL (0.72-1.25); POTASSIUM 3.7 mmol/L (3.5-4.5); TOTAL PROTEIN 5.6 gm/dL (6.2-8.1)
[2022-12-03 12:45] LABS: TROPONIN-I 0.016 ng/mL (0.00-0.033)
[2022-12-03 14:05] LABS: COLLECTION METHOD CLEAN CATCH
[2022-12-03 14:11] LABS: URINE APPEARANCE Cloudy (CLEAR/HAZY); URINE COLOR Amber (YELLOW)
[2022-12-03 14:13] LABS: URINE GLUCOSE Negative (NEGATIVE); URINE KETONE 1+ (NEGATIVE); URINE PROTEIN(semi-quant) TRACE (NEGATIVE)
[2022-12-03 14:14] LABS: URINE BLOOD TRACE-INTACT (NEGATIVE); URINE UROBILINOGEN 0.2 E.U/dL (0.2-1.0)
[2022-12-03 14:15] LABS: URINE NITRATE Negative (NEGATIVE)
[2022-12-03 14:16] LABS: MUCOUS Present (NOT PRESENT); SQUAMOUS EPITHELIAL 0-2 /hpf (0-10); URINE BACTERIA None Seen /hpf (NONE SEEN)
[2022-12-03 20:02] VITALS: BP 159/54; PULSE 66; TEMP 97.8
[2022-12-03 23:39] VITALS: BP 200/81
[2022-12-03 23:43] VITALS: BP 139/80; BP 193/80
[2022-12-03 23:57] VITALS: BP 206/83
[2022-12-04] VITALS (11 sets, daily range): BP systolic 98–206; BP diastolic 52–101; PULSE 60–70; TEMP 97.5–98.1
--- NOTE | 2022-12-04 00:48 | NUR ---
Patient arrived to the floor at 1999 with nurse Tracee, with INT to LAC, present as well, hospital policies orientated, denies pain or discomfort, vitals taken, with oconnell catheter draining well, call light and personal items within reach. At 2330, Karin, the PA came to see the patient, we checked the ortho vitals and they were all high. Karin ordered sotalol and eliquis. Called the RT to set up the CPAP as well, call light and personal items within reach, will continue to monitor.
--- NOTE | 2022-12-04 02:34 | NUR ---
Received an order for Karin to remove the catheter, removed the catheter at 0246.
[2022-12-04] MEDS ORDERED: SPIRIVA RE2.5 MCG/Ac IH (03:46)
[2022-12-04] MEDS ORDERED: CLARITIN 1010 MG/TAB PO (03:47)
[2022-12-04] MEDS ORDERED: MIRALAX PA17 GM/Dose PO (03:48)
[2022-12-04] MEDS ORDERED: LOTENSIN20 MG PO (03:49)
[2022-12-04] MEDS ORDERED: EFUDEX40 GM TP (03:50)
[2022-12-04] MEDS ORDERED: SALAGEN 5MG TAB5 MG PO (03:51)
[2022-12-04] MEDS ORDERED: OMEGA-3 FISH1000 MG PO (04:25)
[2022-12-04 06:34] LABS: BASO % 0.4 % (0.0-2.0); EOS # 0.2 K/mm3 (0.0-0.7); EOS % 2.6 % (0.0-4.0); GRAN # 4.2 K/mm3 (1.4-6.5); GRAN % 59.8 % (42.2-75.2); HEMATOCRIT 44.1 % (42.0-52.0); HEMOGLOBIN 14.5 g/dl (13.5-18.0); LYMPH # 1.9 K/mm3 (1.2-3.4); LYMPH % 27.5 % (20.0-51.0); MEAN CELL VOLUME 89 fl (80.0-100.0); MEAN CORPUSCULAR HEMOGLOBIN 29 pg (27-31); MEAN CORPUSCULAR HGB CONC 33 g/dl (33.0-37.0); MEAN PLATELET VOLUME 10.2 fl (7.4-10.4); MONO # 0.6 K/mm3 (0.1-0.6); MONO % 9.1 % (1.7-9.3); PLATELET COUNT 191 K/mm3 (130-400); RED BLOOD COUNT 4.97 M/mm3 (4.20-5.60)
[2022-12-04 06:42] LABS: CALCIUM 8.7 mg/dL (8.4-10.2); CREATININE, serum 0.75 mg/dL (0.72-1.25); POTASSIUM 3.5 mmol/L (3.5-4.5)
--- NOTE | 2022-12-04 07:12 | NUR ---
Called Dr. Lopez and could not get a hold of him, left a message that he has consulted for this patient.
--- NOTE | 2022-12-04 07:56 | NUR ---
Pt partially oriented, is restless. He knows where he is, name date of etc, but he keeps trying to get out of bed on his own. He is messing with his IV even though moments before he stated that he would leav his IV alone. I did talk with on the phone and gave an update. Also asked her to bring his pacemaker card when she arrives. Discussed with MRI who stated that would not be able to do his MRI until tomorrow as of now. Pt having echo done now
[2022-12-04] MEDS ORDERED: BETAPACE240 MG PO (09:04)
[2022-12-04] MEDS ORDERED: [UNRECOGNIZED DRUG - OTHER] TP (09:10)
--- NOTE | 2022-12-04 10:00 | NUR ---
Pt did not eat anything for breakfast even with helping. Pt just reports he is not hungry. PT continues to see things that are not there. Pt does not appear to be in any pain. Pt did get up and walk in the halls with therapy. Pt now sitting up in the chair with chair alarm on
--- NOTE | 2022-12-04 11:55 | NUR ---
SWATHI met with the patient and his , Sammie (ph#[phone]), to discuss discharge plan. The patient's been having altered mental status. The patient lives in [place] with his . Sammie states that the patient is normally independent with ADLs and has a rollator, FWW, cane, and CPAP. He does not have any home health services at this time, but Sammie states that he has in the past. The patient's PCP is Dr. Jon Lindquist and he receives his medications at [facility]. The patient's DPOA-HC is in EMR and it designates his . The alternate is the patient's daughter, Toña Jansen. Sammie states that she is unsure about how she feels about the patient returning home at this time, due to his cognition. PT has worked with the patient and note he is walking 120 ft, but recommendation is to be determined. The patient is observation status. SWATHI educated Sammie of how if they are wanting to pursue SNF, it would be private pay. Sammie verbalized understanding and states that she is aware of this. She is hoping they will find out what is causing the patient's altered mentation. *Discharge plan: Undetermined at this time*
--- NOTE | 2022-12-04 12:43 | NUR ---
Sofia: Islam Situation: supervisor weaving stopped by room on rounds Background: Pt was resting and content in his chair Assessment: pt has no needs right now. Pt appreciated the visit Recommendation: supervisor weaving will follow up as needed
--- NOTE | 2022-12-04 13:20 | NUR ---
Pt slow to eat lunch. Keeps stating that he doesn't think it is his, but after he takes a bit, he states the food is really good. I showed pt the ticket with his name on it. Pt continues to see things that are not in the room. Does not appear to be in any pain
--- NOTE | 2022-12-04 13:29 | NUR ---
Pt did well with his lunch. Therapy in to assist with getting him up. Pt initially refused stating that it wasn't something he was going to do right now. Pt started to get irritated. then showed up and convinced him to walk with therapy. Checked BP as he stood up, documented in vitals. Pt did bring up concern that what is going on with Nickolas is not just due to his age. She stated that this happened very quickly. And his mentation declined over the last 24 hours. Informed her that I would make sure providers are aware of this.
--- NOTE | 2022-12-04 16:03 | NUR ---
Pt has done ok this afternoon. Continues to be forgetful, but is doing better with his at bedside. He also continues to have hallucinations. Pt in the chair with chair alarm on
--- NOTE | 2022-12-04 20:12 | NUR ---
SHIFT REPORT FROM VISHNU MASTERS. PATIENT IN BED ON ROOM ENTRY. ALERT BUT CONFUSED. AT BEDSIDE. PATIENT HAD EPISODE OF INCONTINENCE AND THEN WAS ASSISTED IN USING URINAL AND HAD ANOTHER 350 OUT. HS MEDS PER EMAR WITH SIPS OF WATER. DENIES PAIN. SKIN TEAR TO L FA REDRESSED WITH FOAM PAD. DENIES ADDITIONAL NEEDS. CALL LIGHT IN REACH, BED ALARM ON.
[2022-12-05] VITALS (7 sets, daily range): BP systolic 107–184; BP diastolic 48–80; PULSE 66–73; TEMP 97.6–98.6
--- NOTE | 2022-12-05 04:34 | NUR ---
BP ELEVATED 180/80 AND AM IMDUR GIVEN EARLY.
--- NOTE | 2022-12-05 16:01 | NUR ---
SWATHI contacted the patient's , Sammie, to follow up about discharge plan. Sammie states that the patient had an MRI this morning and they are awaiting the results. She states that if the doctors find something on the MRI and they upgrade him to inpatient, then she may be interested in SNF. Otherwise, she may be looking at home with home health. She would like to wait to pursue with plans after finding out the results.
--- NOTE | 2022-12-05 19:56 | NUR ---
SHIFT REPORT FROM JOSUE MASTERS. PATIENT IN BED ON ROOM ENTRY. PATIENT HAD EPISODE OF INCONTINENCE AND BED CHANGE WAS COMPLETED. PATIENT REFUSED TO EAT DINNER. DENIES PAIN. HS MEDS WITH SIPS OF WATER. IV TO L HAND PATENT AND FLUSHES EASILY. DENIES ADDITIONAL NEEDS AT THIS TIME.
--- NOTE | 2022-12-05 20:50 | NUR ---
PT RESTING IN BED AT THIS TIME. HOME CPAP SET UP AT BEDSIDE AND PLUYGGED INTO RED OUTLET. CALL LIGHT WITHIN REACH. PT AWARE OF CPAP SET UP.
[2022-12-06 03:40] VITALS: BP 126/40; BP 182/76; PULSE 60; PULSE 67; TEMP 97.6; TEMP 97.9
[2022-12-06 08:00] VITALS: BP 122/66; PULSE 60; TEMP 98.2
[2022-12-06] MEDS ORDERED: NORVASC 5MG5 MG/TAB PO ×2 (09:48)
--- NOTE | 2022-12-06 10:05 | NUR ---
Dr. Kingsley informs patient MRI is negative and family is in support of HH per payor source and admission status. Spouse Sammie is at patient bedside and would like to discuss HH options for discharge today. Flowers Salesperson to follow up with patient and spouse.
[2022-12-06 12:00] VITALS: BP 107/52; PULSE 62; TEMP 98.7
--- NOTE | 2022-12-06 14:25 | NUR ---
Dr. Kingsley informs patient has been evaluated by PT/OT and is not safe to discharge to home as he cannot transfer independent and/or navigate stairs. Spouse has no family to support her, and she is limited in her ability to support patient physically. Patient requires SNF placement but patient does not meet Medicare standard for SNF placement at this time; per Dr. Kingsley, family is unable to afford self-pay for SNF care. High School Teacher is consulting Natalia COWAN Case Work Station Support Specialist.
--- NOTE | 2022-12-06 15:32 | NUR ---
Spraying Machine Operator met with patient, spouse Kat MASTERS at bedside and discussed care plan options for inpatient rehabilitation services. Spouse is in support of first choice [facility] referral and second choice [facility]. Spraying Machine Operator confirms [facility] screen/consult is completed and referrals to both are placed.
[2022-12-06 15:38] VITALS: BP 100/48; PULSE 58; TEMP 97.8
--- NOTE | 2022-12-06 15:38 | NUR ---
PT HAS BEEN SLEEPY TODAY, AROUSES EASILY WHEN TALKED TO. SPOUSE AT SIDE MOST OF SHIFT. PHYSICAL THERAPY WORKED WITH PATIENT IN ANTIPICATION FOR DISCHARGE HOME. PATIENT WAS BARELY ABLE TO AMUBLATE 5 FEET. SPOUSE VOICED CONCERNS ABOUT GETTING HIM INTO HOUSE THEY HAVE 3 STEPS. CONCERNS FORWARDED TO MD AND FARROWING MANAGER, DISCHARGE CANCELLED AT THIS TIME. [facility] SCREEN ORDERED.
--- NOTE | 2022-12-06 15:49 | NUR ---
PT B/P LOW WITH DINAMAP, MANUAL B/P OBTAINED RESULTING IN 100/50, DR. MATHIS INFORMED OF B/P, DR. MATHIS REVIEWING MEDS AND WILL PLACE ANY ORDERS NEEDED.
--- NOTE | 2022-12-06 20:34 | NUR ---
PT AGITATED AND COMBATIVE
--- NOTE | 2022-12-06 23:09 | NUR ---
SHIFT REPORT FROM AINSLEY MASTERS. PATIENT IN BED ON ROOM ENTRY. ALERT BUT CONFUSED. NOTIFIED BY PCT THAT PATIENT WAS REFUSING HIS VITALS AND WOULD NOT LET HER TOUCH HIM. PATIENT INCREASINGLY AGITATED AND TORE OFF TELE, REFUSING TO LET GO OF IT. REFUSING TO TAKE HS MEDS. PATIENT IS ALSO INCREASINGLY AGRESSIVE AND GRABBING AT STAFF/HITTING. NOTIFIED PALAK VARGAS AND ORDER FOR SEROQUEL, WHICH PATIENT REFUSED TO TAKE. DISCUSSED WITH PALAK AGAIN AND ORDER FOR IV ATIVAN GIVEN. MITTS APPLIED TO PATIENT AND TELE REAPPLIED. PATIENT MORE CALM AND RESTING NOW BUT STILL REFUSING TO TAKE MEDICATIONS AND STATES HE "DOESN'T TRUST US". BED ALARM ON.
[2022-12-06 23:34] VITALS: BP 175/91; PULSE 68; TEMP 98.4
[2022-12-07 03:40] VITALS: BP 127/101; PULSE 70; TEMP 97.7
[2022-12-07 06:22] LABS: BASO # 0.1 K/mm3 (0.0-0.2); BASO % 0.6 % (0.0-2.0); EOS # 0.3 K/mm3 (0.0-0.7); EOS % 3.9 % (0.0-4.0); GRAN # 4.6 K/mm3 (1.4-6.5); HEMATOCRIT 45.7 % (42.0-52.0); LYMPH # 2.6 K/mm3 (1.2-3.4); LYMPH % 30.8 % (20.0-51.0); MEAN CELL VOLUME 85 fl (80.0-100.0); MEAN CORPUSCULAR HEMOGLOBIN 30 pg (27-31); MEAN CORPUSCULAR HGB CONC 35 g/dl (33.0-37.0); MEAN PLATELET VOLUME 10.3 fl (7.4-10.4); MONO % 11.3 % (1.7-9.3); PLATELET COUNT 193 K/mm3 (130-400); RED BLOOD COUNT 5.37 M/mm3 (4.20-5.60); REDCELL DISTRIBUTION WIDTH-CV 13.8 % (11.5-14.5)
[2022-12-07 06:35] LABS: CALCIUM 9.9 mg/dL (8.4-10.2); CREATININE, serum 0.79 mg/dL (0.72-1.25); POTASSIUM 4.2 mmol/L (3.5-4.5)
[2022-12-07 07:41] VITALS: BP 112/61; PULSE 63; TEMP 98.2
--- NOTE | 2022-12-07 09:18 | NUR ---
SWATHI recieved phone call from Annabelle at [facility] and stating they could take the pt on Thursday. SWATHI called Christelle on status on referral. She reports hasn't looked at it and nothing would happen today. SWATHI to update pt.& family. Annabelle @ [phone] [facility].
[2022-12-07 11:46] VITALS: BP 105/88; PULSE 95; TEMP 97.6
--- NOTE | 2022-12-07 14:38 | NUR ---
PT DROWSY THIS LAST 8 HOURS, AWARE AND NO NEW ORDERS. SPOUSE AT SIDE MOST OF THE LAST 5 HOURS. ATTEMPTS TO GET PATIENT TO EAT WERE UNSUCCESSFUL. MEDICATIONS GIVEN IN ICE CREAM WITHOUT PROBLEM. PT INCONTINENT OF URINE. [facility] AT SIDE AT THIS TIME EVAL.
[2022-12-07 15:55] VITALS: BP 119/44; PULSE 61; TEMP 98.4
--- NOTE | 2022-12-07 18:34 | NUR ---
PT SLEPT 90% OF SHIFT, EASILY AROUSED, REFUSED TO EAT BREAKFAST AND LUNCH. ONLY ATE 40% OF EVENING MEAL. COUGHING NOTED PRIOR TO FEEDING HIM EVENING MEAL. LUNG ARE DIMISHED, NO FEVER AND OXYGEN SATURATION IS 91% ON ROOM AIR. PATIENT EASILY STARTLED EVEN WHEN HIS NAME IS CALLED.
[2022-12-07 20:00] VITALS: BP 100/47; PULSE 61; TEMP 97.3
--- NOTE | 2022-12-07 20:08 | NUR ---
Patient drowsy, easily arousable, pills crushed with apple sauce and swallowed them okay, unable to assess his eyes at this time for neurochecks d/t patient won't keep opening eyes at a longer amount of time, called Dr. Strickland at 2007 d/t blood pressure is soft, received an order to go ahead and give it, call light within reach, bed alarm on, fall precautions in place.
[2022-12-08 00:16] VITALS: BP 141/74; PULSE 61; TEMP 98.6
--- NOTE | 2022-12-08 00:31 | NUR ---
Patient awakened at this time and he thought he is at home.
--- NOTE | 2022-12-08 02:56 | NUR ---
Patient incontinent of urine, changed pad and pericare done, repositioned patient to his left side.
[2022-12-08 03:03] VITALS: BP 155/93; PULSE 68; TEMP 98.4
--- NOTE | 2022-12-08 04:38 | NUR ---
Patient is awake at this time and keeps hollering and saying "quan". Patient is not in pain as verbalized. Will continue to monitor.
[2022-12-08 07:01] LABS: BASO # 0.1 K/mm3 (0.0-0.2); BASO % 0.6 % (0.0-2.0); EOS # 0.3 K/mm3 (0.0-0.7); EOS % 3.6 % (0.0-4.0); GRAN # 5.3 K/mm3 (1.4-6.5); HEMOGLOBIN 14.3 g/dl (13.5-18.0); LYMPH # 2.4 K/mm3 (1.2-3.4); LYMPH % 26.1 % (20.0-51.0); MEAN CELL VOLUME 86 fl (80.0-100.0); MEAN CORPUSCULAR HEMOGLOBIN 29 pg (27-31); MEAN CORPUSCULAR HGB CONC 34 g/dl (33.0-37.0); MEAN PLATELET VOLUME 10.4 fl (7.4-10.4); MONO % 10.9 % (1.7-9.3); PLATELET COUNT 179 K/mm3 (130-400); RED BLOOD COUNT 4.87 M/mm3 (4.20-5.60)
[2022-12-08 07:25] LABS: CALCIUM 9.1 mg/dL (8.4-10.2); CREATININE, serum 0.98 mg/dL (0.72-1.25); POTASSIUM 3.6 mmol/L (3.5-4.5)
[2022-12-08 08:14] VITALS: BP 112/44; PULSE 64; TEMP 98.6
--- NOTE | 2022-12-08 09:26 | NUR ---
[facility] director notifies this SW that they are unable to accept this patient for admission.
--- NOTE | 2022-12-08 10:20 | NUR ---
Pt off the floor with radiology
--- NOTE | 2022-12-08 10:51 | NUR ---
Pt back in his room. Pt was awake enough to eat some breakfast prior to going down with radiology. Pt is sleeping now that he is back in his room. He does wake easily, but also quickly goes back to sleep. Pt having complaints of pain in his back with movement. stated that he has back problems and since he did not get up this weekend, the pain has increased. Pt took medications without difficulty.
[2022-12-08 12:18] VITALS: BP 105/50; PULSE 62; TEMP 97.4
--- NOTE | 2022-12-08 14:00 | NUR ---
Pt has been sleeping off and on, more drowsy than not. Pt has been incontinent of urine, linens changed as needed. Repositioning pt every 2 hours. Pt remains at bedside
--- NOTE | 2022-12-08 14:11 | NUR ---
SWATHI spoke to patients and updated her that [facility] is unable to accept, but [facility] can accept for admit Thursday. Phone call made and message left for Shav[facility] and [facility].
[2022-12-08 16:05] VITALS: BP 130/57; PULSE 62; TEMP 98.4
--- NOTE | 2022-12-08 17:39 | NUR ---
Pt more awake now, restless in bed. Conversation in confused. Pt has slight smirk on his face. Only appears to be in pain when we reposition him. Bed alarm on
--- NOTE | 2022-12-08 18:44 | NUR ---
Pt has become more agitated now. I went in the room and he tried throwing his ice water on me. He then tried to kick me as I was tryin to straighten his covers. Repositioned him the best I could. Bed alarm on
[2022-12-08 19:32] VITALS: BP 169/73; PULSE 70; TEMP 98.5
--- NOTE | 2022-12-08 19:44 | NUR ---
PT REFUSED NEBULIZER AT THIS TIME
--- NOTE | 2022-12-08 20:39 | NUR ---
Patient more alert than last night but still confused, head to toe assessment done, see shift assessment, repositioned regularly, crushed pills with apple sauce and took them fine. Patient was looking for his car pandya and wants to go home, this nurse reorientated this patient, fall precautions in place, bed alarm on, will continue to monitor.
--- NOTE | 2022-12-09 00:46 | NUR ---
Repositioned patient at this time, complete bed change done as well d/t patient incontinent of urine.
--- NOTE | 2022-12-09 03:24 | NUR ---
Patient incontinent of urine, complete bed change done, pericare provided and repositioned patient.
[2022-12-09 05:45] VITALS: BP 162/81; PULSE 64; TEMP 97.7
[2022-12-09 06:05] LABS: BASO # 0.1 K/mm3 (0.0-0.2); BASO % 0.5 % (0.0-2.0); EOS # 0.5 K/mm3 (0.0-0.7); EOS % 4.9 % (0.0-4.0); GRAN % 53.1 % (42.2-75.2); HEMATOCRIT 45.4 % (42.0-52.0); HEMOGLOBIN 15.6 g/dl (13.5-18.0); LYMPH # 2.8 K/mm3 (1.2-3.4); LYMPH % 29.1 % (20.0-51.0); MEAN CELL VOLUME 86 fl (80.0-100.0); MEAN CORPUSCULAR HEMOGLOBIN 30 pg (27-31); MEAN CORPUSCULAR HGB CONC 34 g/dl (33.0-37.0); MEAN PLATELET VOLUME 10.1 fl (7.4-10.4); MONO # 1.1 K/mm3 (0.1-0.6); PLATELET COUNT 188 K/mm3 (130-400); RED BLOOD COUNT 5.28 M/mm3 (4.20-5.60); REDCELL DISTRIBUTION WIDTH-CV 13.7 % (11.5-14.5)
[2022-12-09 06:16] LABS: CALCIUM 9.9 mg/dL (8.4-10.2); CREATININE, serum 0.78 mg/dL (0.72-1.25); POTASSIUM 4.3 mmol/L (3.5-4.5)
[2022-12-09 07:18] VITALS: BP 119/64; PULSE 68; TEMP 98
--- NOTE | 2022-12-09 07:34 | NUR ---
Bedside report received from the night nurse, GUERRERO Jay.
--- NOTE | 2022-12-09 10:21 | NUR ---
Patient laying in bed awake , alert to his name. Patient is confuse , talking to himself, family member at the bedside. Noted ecchymosis bilateral upper extremities. INT left hand intact. AM care performed and meds administered. Patient tolerated it well. Call anaya within reach and bed alarm activated.
--- NOTE | 2022-12-09 10:52 | NUR ---
Patient off the unit for MRI. Telemonitor off temporarily.
--- NOTE | 2022-12-09 11:22 | NUR ---
SWATHI spoke with Sara at [facility]. Per Rl, they are not able to bring this patient in today due to them having to pull staff to become sitter for other patients there. Sara states that if we are able to hold the patient one more day, they could possibly bring him in tomorrow, but will not know for sure until their bed meeting Thu. morning.
[2022-12-09 12:10] VITALS: BP 91/44; PULSE 61; TEMP 98.2
[2022-12-09 15:54] VITALS: BP 119/68; PULSE 59; TEMP 97.9
[2022-12-09 20:11] VITALS: BP 117/61; PULSE 61; TEMP 97.9
--- NOTE | 2022-12-09 20:51 | NUR ---
Patient drowsy at this time and confused, easily arousable, head to toe assessment done, see shift assessment, lungs wheezy RT informed and said patient already had a breathing treatment, personal iems within reach, fall precautions in place, bed alarm on.
[2022-12-09 23:37] VITALS: BP 114/49; PULSE 59; TEMP 98.9
--- NOTE | 2022-12-10 00:38 | NUR ---
Repositioned patient at this time to his left side, pad change as well d/t patient incontinent of urine.
[2022-12-10 03:59] VITALS: BP 119/52; PULSE 62; TEMP 97.6
--- NOTE | 2022-12-10 06:27 | NUR ---
Repositioned patient at this time, noted 2 skin tears on the left forearm applied foam dressing, will continue to monitor.
[2022-12-10 06:58] LABS: BASO # 0.1 K/mm3 (0.0-0.2); BASO % 0.7 % (0.0-2.0); EOS # 0.4 K/mm3 (0.0-0.7); EOS % 4.2 % (0.0-4.0); GRAN # 4.8 K/mm3 (1.4-6.5); GRAN % 54.9 % (42.2-75.2); HEMATOCRIT 43.1 % (42.0-52.0); HEMOGLOBIN 14.3 g/dl (13.5-18.0); LYMPH # 2.2 K/mm3 (1.2-3.4); LYMPH % 25.8 % (20.0-51.0); MEAN CELL VOLUME 90 fl (80.0-100.0); MEAN CORPUSCULAR HEMOGLOBIN 30 pg (27-31); MEAN CORPUSCULAR HGB CONC 33 g/dl (33.0-37.0); MEAN PLATELET VOLUME 10.5 fl (7.4-10.4); MONO # 1.2 K/mm3 (0.1-0.6); MONO % 13.7 % (1.7-9.3); PLATELET COUNT 172 K/mm3 (130-400); REDCELL DISTRIBUTION WIDTH-CV 14.2 % (11.5-14.5)
[2022-12-10 07:00] LABS: CALCIUM 9.7 mg/dL (8.4-10.2); CREATININE, serum 0.8 mg/dL (0.72-1.25)
[2022-12-10 08:53] VITALS: BP 115/69; PULSE 62; TEMP 99
--- NOTE | 2022-12-10 10:51 | NUR ---
PT RESTING IN BED, AT BEDSIDE ASSISTING WITH MED PASS. CRUSHED IN APPLESAUCE. PT IS RESTLESS AND SETTLES WHEN SPEAKS TO HIM.
--- NOTE | 2022-12-10 10:57 | NUR ---
Several visit attempts: Patient sleeping, Drawbench Operator Helper left card with his letting her know of the availability of spiritual care at our hospital and how to let Drawbench Operator Helper know if she and Nickolas would like a visit. Drawbench Operator Helper offered God's blessings to both of them.
[2022-12-10 12:15] VITALS: BP 93/51; PULSE 63; TEMP 98
--- NOTE | 2022-12-10 14:25 | NUR ---
Sara, at [facility], reports that they are unsure when they will have a bed opening up now. She states that they can keep the patient on their list, in case something does open up. SWATHI met with the patient's , Sammie, to update and discussed having to send referrals to other facilities. Sammie verbalized understanding. She would prefer to stay local. SWATHI contacted and faxed referrals to [facility], [facility], [facility], [place], [facility], [facility]. SWATHI attempted to contact at [facility]. SWATHI left her a voicemail, giving her the referral.
--- NOTE | 2022-12-10 15:10 | NUR ---
Soledad, at [facility], states that she will have her team look over the referral, but they would not have a bed open by tomorrow.
--- NOTE | 2022-12-10 16:16 | NUR ---
Lorena, at [facility], reports that they will review the referral and let us know if a bed opens up by tomorrow and if able to accept or not. Lillian, at [facility], reports that they are able to accept the patient. Teagan, at [facility], reports that they are able to accept the patient. Edilberto, at [facility], reports that it is tentative yes, but his team still needs to look over the referral.
[2022-12-10 16:45] VITALS: BP 104/47; PULSE 61; TEMP 97.9
[2022-12-10 19:29] VITALS: BP 116/64; PULSE 77; TEMP 98.4
[2022-12-10 23:22] VITALS: BP 94/43; PULSE 59; TEMP 98.6
[2022-12-11] VITALS (7 sets, daily range): BP systolic 78–148; BP diastolic 43–88; PULSE 59–61; TEMP 97.2–98.6
[2022-12-11 07:34] LABS: CALCIUM 9.3 mg/dL (8.4-10.2); CREATININE, serum 0.78 mg/dL (0.72-1.25); POTASSIUM 4.1 mmol/L (3.5-4.5)
[2022-12-11 07:47] LABS: BASO # 0.1 K/mm3 (0.0-0.2); BASO % 0.7 % (0.0-2.0); EOS # 0.5 K/mm3 (0.0-0.7); GRAN # 4.4 K/mm3 (1.4-6.5); GRAN % 48.6 % (42.2-75.2); HEMATOCRIT 41.9 % (42.0-52.0); LYMPH # 2.9 K/mm3 (1.2-3.4); LYMPH % 32.7 % (20.0-51.0); MEAN CELL VOLUME 90 fl (80.0-100.0); MEAN CORPUSCULAR HEMOGLOBIN 30 pg (27-31); MEAN CORPUSCULAR HGB CONC 33 g/dl (33.0-37.0); MONO # 1.1 K/mm3 (0.1-0.6); MONO % 12.2 % (1.7-9.3); PLATELET COUNT 225 K/mm3 (130-400); RED BLOOD COUNT 4.67 M/mm3 (4.20-5.60); REDCELL DISTRIBUTION WIDTH-CV 14.5 % (11.5-14.5)
--- NOTE | 2022-12-11 08:04 | NUR ---
0640 Report recieved from GUERRERO Gudino at this time. 0740 Head to toe assessment completed (see shift assessment). Pt was sleeping in bed, difficult arousal. Did make eye contact with this student nurse. Turned pt on side. was at bedside. No signs or symptoms of pain. requested call light was within reach for her to use when assitance needed. Instructed to use the call light when assistance for pt is needed, gave instructions on how to use call light. VSS. Pt remains in bed sleeping. Will continue to monitor
--- NOTE | 2022-12-11 09:09 | NUR ---
Follow-up: Patient's feeding him breakfast and thanked Executive Secretary of sabraing in checking on them. Executive Secretary offered God's blessings and made sure she remembered to call Executive Secretary if she needed spiritual care. She said she would.
--- NOTE | 2022-12-11 10:48 | NUR ---
0930 Pt was alerted to person. Reoriented to place, time, and situation. Pt sitting in chair with call light in reach.
--- NOTE | 2022-12-11 11:32 | NUR ---
1132 Informed primary nurse, Shahab about low BP.
--- NOTE | 2022-12-11 11:34 | NUR ---
Edilberto, at [facility], reports that they are still reviewing the referral. The clinical team has ordered a lumbar pucture. Awaiting the procedure. SWATHI met with the patient and his , Sammie, to update on the referrals. Sammie reports that she would prefer [facility], if they can take. She states that if they cannot, then she would be okay with the patient going to [place]. Brianda, at [facility], then notified SWATHI that they are able to accept the patient, as long as the patient's PCP is okay to follow him while there. Brianda plans to check into this.
--- NOTE | 2022-12-11 16:27 | NUR ---
AGREE WITH STUDENT NEISHA'S ASSESSMENTS THIS SHIFT. PT UP AND DOWN TO RECLINER WITH MAX ASSIST WITH THERAPY. PT BACK IN BED AT THIS TIME. SPOKE WITH KEVIN TORREZ AND PT HAD BRIANNA TODAY AND [facility] FOR 72 HRS.
--- NOTE | 2022-12-11 21:27 | NUR ---
SHIFT REPORT FROM IGLESIA MASTERS. PATIENT IN BED ON ROOM ENTRY. ALERT TO SELF BUT CONFUSED IN CONVERSATION. HS MEDS PER EMAR WITH WATER. DRESSINGS TO ARMS CHANGED WITH NONADHERANT GAUZE PADS AND FOAM PADS OVER TOP. HAS NEEDED FREQUENT REORIENTATION TONIGHT.
[2022-12-12 03:40] VITALS: BP 154/63; PULSE 60; TEMP 97.6
[2022-12-12 06:37] LABS: CALCIUM 9.8 mg/dL (8.4-10.2); CREATININE, serum 0.85 mg/dL (0.72-1.25)
[2022-12-12 06:44] LABS: BASO # 0.1 K/mm3 (0.0-0.2); BASO % 0.6 % (0.0-2.0); EOS # 0.5 K/mm3 (0.0-0.7); EOS % 4.8 % (0.0-4.0); GRAN # 5.9 K/mm3 (1.4-6.5); GRAN % 58.6 % (42.2-75.2); HEMOGLOBIN 14.8 g/dl (13.5-18.0); LYMPH # 2.5 K/mm3 (1.2-3.4); LYMPH % 24.5 % (20.0-51.0); MEAN CELL VOLUME 86 fl (80.0-100.0); MEAN CORPUSCULAR HEMOGLOBIN 29 pg (27-31); MEAN CORPUSCULAR HGB CONC 34 g/dl (33.0-37.0); MONO # 1.1 K/mm3 (0.1-0.6); MONO % 10.8 % (1.7-9.3); PLATELET COUNT 216 K/mm3 (130-400); RED BLOOD COUNT 5.09 M/mm3 (4.20-5.60); REDCELL DISTRIBUTION WIDTH-CV 13.9 % (11.5-14.5)
[2022-12-12 07:08] VITALS: BP 132/51; PULSE 63; TEMP 97.6
--- NOTE | 2022-12-12 10:25 | NUR ---
7234 This student nurse received report from night stocker nurse and day shift primary nurseLisa. Care coordinated with primary nurse.
--- NOTE | 2022-12-12 10:27 | NUR ---
0730 Head to toe assessment complete at this time (see shift assessment). Pt denies any complaint of pain. Pt voided in urinal at this time, 250mL.
[2022-12-12 11:22] VITALS: BP 121/71; PULSE 59; TEMP 97.8
--- NOTE | 2022-12-12 11:49 | NUR ---
I HAVE REVIEWED ASSESSMENT PLACE BY STUDENT ISIS AND AGREE WITH HER ASSESSMENT.
--- NOTE | 2022-12-12 15:07 | NUR ---
Edilberto, at [facility], reports that they are able to accept the patient. SWATHI attended clinical rounds. ST has been ordered and the doctor would like for the patient to be evaluated by ST. The patient may be able to discharge tomorrow now. SWATHI followed up with the patient's , Sammie, and updated her on the referrals. She is happy [facility] can take, but asks if [facility] cannot assess the patient again, since he has improved. SWATHI notified [facility]. Arabella, with [facility], reports that after reviewing the patient again, they will still have to decline at this time. SWATHI updated the patient's , Sammie. Sammie reports she is good with the patient going to [facility] and is aware possible discharge tomorrow. SWATHI presented and read the IM form outloud to Sammie. Sammie verbalized understanding and signed the form. SWATHI provided her with a copy. SWATHI notified Edilberto at [facility] of possible discharge tomorrow and faxed him updates. *Discharge plan: [facility] SNF*
[2022-12-12 15:45] VITALS: BP 121/59; PULSE 60; TEMP 98.3
--- NOTE | 2022-12-12 17:52 | NUR ---
PT ONLY ATE DESERT AND WOULD NOT EAT ANYTHING ELSE. PT WORRIED ABOUT PAYING FOR SOMETHING, ASSURED PATIENT THERE WAS NOTHING TO PAY FOR AT THIS TIME. DRESSING TO LEFT ELBOW CHANGED R/T DRAINAGE NOTED, AREA UNDER DRESSING DRY AND NOT DRAINING AT THIS TIME.
--- NOTE | 2022-12-12 19:07 | NUR ---
PT INCONTINENT OF STOOL IN BED, HAD STOOL ON ONE HAND. STATING, "I'M SORRY I DID IT IN YOUR GARAGE" PATIENT REORIENTED TO PLACE AND TIME.
[2022-12-12 19:51] VITALS: BP 151/93; PULSE 62; TEMP 97.9
--- NOTE | 2022-12-12 20:30 | NUR ---
PT TAKES HS MEDS CRUSHED IN APPLESAUCE. INT TO LT HAND FLUSHES WELL. IS ALERT, CONFUSED TO PLACE AND TIME. DID KNOW WHO THE PRESIDENT WAS. HAS SKIN TEARS WITH DRSGS TO RFA AND LFA. BED ALARM ON FOR SAFETY.
[2022-12-13] VITALS (7 sets, daily range): BP systolic 102–143; BP diastolic 51–76; PULSE 59–107; TEMP 97.3–98.7
[2022-12-13 06:02] LABS: BASO # 0.1 K/mm3 (0.0-0.2); BASO % 0.7 % (0.0-2.0); EOS # 0.4 K/mm3 (0.0-0.7); EOS % 5.7 % (0.0-4.0); GRAN # 3.6 K/mm3 (1.4-6.5); GRAN % 48.5 % (42.2-75.2); HEMATOCRIT 40.2 % (42.0-52.0); HEMOGLOBIN 13.8 g/dl (13.5-18.0); LYMPH # 2.5 K/mm3 (1.2-3.4); LYMPH % 34.3 % (20.0-51.0); MEAN CELL VOLUME 87 fl (80.0-100.0); MEAN CORPUSCULAR HEMOGLOBIN 30 pg (27-31); MEAN CORPUSCULAR HGB CONC 34 g/dl (33.0-37.0); MEAN PLATELET VOLUME 9.8 fl (7.4-10.4); MONO # 0.7 K/mm3 (0.1-0.6); MONO % 10.1 % (1.7-9.3); PLATELET COUNT 210 K/mm3 (130-400); RED BLOOD COUNT 4.65 M/mm3 (4.20-5.60); REDCELL DISTRIBUTION WIDTH-CV 13.8 % (11.5-14.5)
[2022-12-13 06:16] LABS: CALCIUM 9.4 mg/dL (8.4-10.2); CREATININE, serum 0.74 mg/dL (0.72-1.25)
--- NOTE | 2022-12-13 06:37 | NUR ---
PT TAKES AM MED WITH THICKENED WATER, SWALLOWS WITHOUT PROBLEM. INCONTINENT OF URINE THIS SHIFT.
--- NOTE | 2022-12-13 07:13 | NUR ---
Received shift report from the night nurseCatherine RN.
--- NOTE | 2022-12-13 09:33 | NUR ---
Patient sitting up in a recliner eating breakfast with spouse assistance. Patient denies any pain . Lungs CTA , dressing to bilateral arm intact. See process intervention for notes.
--- NOTE | 2022-12-13 10:10 | NUR ---
Sammie, patient spouse, informs she is leaving today to attend a ; she spoke to the physician this morning and was informed patient was not discharging today to [facility] placement. Internet Project Manager spoke to Karin MASTERS and Dr. Arguelles; per Dr. Arguelles, patient can discharge to [facility] SN[facility] placement tomorrow. Internet Project Manager contacted Edilberto at [facility] to update. *Discharge tomorrow (Thursday 12/14) to [facility] SNF placement*
--- NOTE | 2022-12-13 18:28 | NUR ---
Patient incontinent of urine, hygiene performed and bed linen changed.
--- NOTE | 2022-12-13 20:30 | NUR ---
PT MORE AWAKE AND ALERT TONIGHT THAN LAST NIGHT. FED HIMSELF HIS DESSERT. TAKES HS MEDS CRUSHED IN PUDDING, SWALLOWS THICKENED WATER WITHOUT COUGHING. PT ORIENTED TO SELF, THOUGHT HE WAS IN TERA. DRSGS TO RT ARM AND LT ARM CHANGED TODAY, D/I. BRUISING NOTED TO BOTH ARMS. DENIES PAIN. BED ALARM ON FOR SAFETY.
[2022-12-14 03:49] VITALS: BP 113/53; PULSE 59; TEMP 98.4
--- NOTE | 2022-12-14 04:46 | NUR ---
PT HAS BEEN CONTINENT OF URINE TONIGHT. ASKED FOR URINAL AND ASSISTED BY STAFF. MORE ALERT THIS SHIFT.
[2022-12-14 07:22] VITALS: BP 121/71; PULSE 78; TEMP 98.3
[2022-12-14 11:22] VITALS: BP 110/65; PULSE 59; TEMP 97.6
--- NOTE | 2022-12-14 11:28 | NUR ---
SW informed that patient would dcing on this day to [facility]. SW scanned dc documenation to agency. Called agency to update of dc and informed patient and spouse of information provided. Nurse informed of time of clam picker would be today at 2:30pm
== END 2022-12-14 14:52 | DRG 312 ==
LOC: COL.ER 11:52 → SURG 19:23
PROVIDERS: Emergency Medicine; Internal Medicine; Nurse Practitioner Family; Physician Assistant; ADMIT Student in an Organized Health Care Education/Training Program
DX: I95.1 Orthostatic hypotension (principal); G93.40 Encephalopathy, unspecified; I48.92 Unspecified atrial flutter; R47.01 Aphasia; I10 Essential (primary) hypertension; I25.10 Atherosclerotic heart disease of native coronary artery without angina pectoris; I48.0 Paroxysmal atrial fibrillation; G90.9 Disorder of the autonomic nervous system, unspecified; J45.909 Unspecified asthma, uncomplicated; F03.90 Unspecified dementia, unspecified severity, without behavioral disturbance, psychotic disturbance, mood disturbance, and anxiety; I08.1 Rheumatic disorders of both mitral and tricuspid valves; J32.9 Chronic sinusitis, unspecified; M25.572 Pain in left ankle and joints of left foot; G47.33 Obstructive sleep apnea (adult) (pediatric); K59.00 Constipation, unspecified; Z20.822 Contact with and (suspected) exposure to COVID-19; Z79.82 Long term (current) use of aspirin; Z79.01 Long term (current) use of anticoagulants; Z95.0 Presence of cardiac pacemaker; Z95.5 Presence of coronary angioplasty implant and graft; Z96.642 Presence of left artificial hip joint; Z85.46 Personal history of malignant neoplasm of prostate; Z85.828 Personal history of other malignant neoplasm of skin
CPT/HCPCS: OP; A9575; G0378; J0696; J2060; J7030; J7120

== ENCOUNTER 2022-12-16 13:36 | Observation (INO) | payer MEDICARE, OTHER ==
[~2022-12-16] VITALS: Ht 172.7 cm; Wt 85.2 kg
[~2022-12-16 13:36] MED LIST changes: +BETAPACE240 MG PO; +EFUDEX40 GM TP; +MIRALAX PA17 GM/Dose PO; +OMEGA-3 FISH1000 MG PO; +SALAGEN 5MG TAB5 MG PO; +[UNRECOGNIZED DRUG - OTHER] TP
[2022-12-16 14:01] LABS: HEMATOCRIT 41.2 % (42.0-52.0); HEMOGLOBIN 13.8 g/dl (13.5-18.0); MEAN CELL VOLUME 89 fl (80.0-100.0); MEAN CORPUSCULAR HEMOGLOBIN 30 pg (27-31); MEAN CORPUSCULAR HGB CONC 34 g/dl (33.0-37.0); MEAN PLATELET VOLUME 9.6 fl (7.4-10.4); PLATELET COUNT 269 K/mm3 (130-400); RED BLOOD COUNT 4.63 M/mm3 (4.20-5.60); REDCELL DISTRIBUTION WIDTH-CV 14.2 % (11.5-14.5)
[2022-12-16 14:15] LABS: ALBUMIN 2.7 gm/dL (3.4-4.8); BILIRUBIN,TOTAL 0.6 mg/dL (0.2-1.2); C-REACTIVE PROTEIN 1.14 mg/dL (0.00-0.50); CALCIUM 9.5 mg/dL (8.4-10.2); CREATININE, serum 1.96 mg/dL (0.72-1.25); POTASSIUM 4.3 mmol/L (3.5-4.5); TOTAL PROTEIN 6.1 gm/dL (6.2-8.1)
[2022-12-16 14:21] LABS: TROPONIN-I 0.026 ng/mL (0.00-0.033)
[2022-12-16 14:41] LABS: BAND 2 % (0-10); BASOPHIL 1 % (0-2); EOSINOPHIL 3 % (0-4); LYMPHOCYTE 29 % (20.0-51.0); NEUTROPHILS 57 % (42.0-75.2); PLATELET ESTIMATE NORMAL (NORMAL)
[2022-12-16 20:28] VITALS: BP 170/65; PULSE 60; TEMP 97.9
--- NOTE | 2022-12-16 20:30 | NUR ---
Admitted to medical floor from ER-Confused at this time, cooperative, VSS, denies pain when asked, will start IV fluids of NS at 75cc/hr as ordered, bed alarm on, close to nsg station.
--- NOTE | 2022-12-16 23:00 | NUR ---
Pt very agitated- trying to get out of bed- will not lay back down in bed-taking off Tele,, refusing to have me put it back on-- called Marlene BUENO- will give Seraquel,, also did bladder scan pt and 300cc in bladder--did use urinal and voided 300cc with assistance.
[2022-12-17 05:14] VITALS: BP 142/57; PULSE 60; TEMP 98
--- NOTE | 2022-12-17 06:09 | NUR ---
Remains confused-- did sleep well after the Seraquel was given,
[2022-12-17 06:45] LABS: BASO # 0.1 K/mm3 (0.0-0.2); BASO % 0.8 % (0.0-2.0); EOS # 0.5 K/mm3 (0.0-0.7); EOS % 5.2 % (0.0-4.0); GRAN # 4.1 K/mm3 (1.4-6.5); GRAN % 47.3 % (42.2-75.2); HEMATOCRIT 40.1 % (42.0-52.0); HEMOGLOBIN 13.4 g/dl (13.5-18.0); LYMPH # 3.1 K/mm3 (1.2-3.4); LYMPH % 36.2 % (20.0-51.0); MEAN CELL VOLUME 87 fl (80.0-100.0); MEAN CORPUSCULAR HEMOGLOBIN 29 pg (27-31); MEAN CORPUSCULAR HGB CONC 33 g/dl (33.0-37.0); MEAN PLATELET VOLUME 9.7 fl (7.4-10.4); MONO # 0.8 K/mm3 (0.1-0.6); MONO % 9.6 % (1.7-9.3); PLATELET COUNT 228 K/mm3 (130-400); REDCELL DISTRIBUTION WIDTH-CV 13.9 % (11.5-14.5)
[2022-12-17 07:07] LABS: ALBUMIN 2.5 gm/dL (3.4-4.8); CALCIUM 9.2 mg/dL (8.4-10.2); PHOSPHOROUS 3.2 mg/dL (2.3-4.7); POTASSIUM 4.2 mmol/L (3.5-4.5)
[2022-12-17 07:30] VITALS: BP 175/66; PULSE 59; TEMP 97.3
--- NOTE | 2022-12-17 07:48 | NUR ---
Assessment complete. Drowsy but arousable. Oriented to name only. Denies pain. Tele A Paced. IVF infusing to RAC without s/s complications. BUE with several areas of bruising and acquacel bandages in place- all CDI. Coccyx red but blanchable. Will reposition q 2 hours. SCD on BLE.
[2022-12-17] MEDS ORDERED: MYRBETR50MG PO (08:47)
--- NOTE | 2022-12-17 09:23 | NUR ---
The patient is a poor historian. SWATHI contacted the patient's , Sammie (ph#[phone]), to complete intake. The patient recently discharged from the hospital, 12/14, and went to [facility] for a skilled stay. Sammie states that the patient was not eating or drinking, so ended up back at the hospital. The patient was living with his in [place] prior to his SNF stay. His PCP is Dr. Jon Lindquist and his DPOA-HC is in EMR. It designates his . The alternate is the patient's daughter, Toña Jansen. Sammie states that the plan is for the patient to return back to [facility] to resume his skilled stay upon discharge. The patient is observation status and may be able to discharge tomorrow. SWATHI notified and faxed updates to Edilberto at [facility]. *Discharge plan: [facility] SNF*
--- NOTE | 2022-12-17 09:47 | NUR ---
Initial visit: (This stay), Camera Mechanic talked with patient's wishing her well and checking on the patient whom she states is doing ok at this time but thanked Camera Mechanic for looking in on them.
[2022-12-17 11:38] VITALS: BP 152/64; PULSE 58; TEMP 97
[2022-12-17 12:22] LABS: COLLECTION METHOD CATHETER
[2022-12-17 12:31] LABS: MUCOUS Present (NOT PRESENT); SQUAMOUS EPITHELIAL 0-2 /hpf (0-10); URINE BACTERIA None Seen /hpf (NONE SEEN)
[2022-12-17 12:32] LABS: URINE APPEARANCE Clear (CLEAR/HAZY); URINE BLOOD Negative (NEGATIVE); URINE COLOR Yellow (YELLOW); URINE GLUCOSE Negative (NEGATIVE); URINE KETONE 1+ (NEGATIVE); URINE NITRATE Negative (NEGATIVE); URINE PROTEIN(semi-quant) Negative (NEGATIVE); URINE UROBILINOGEN 0.2 E.U/dL (0.2-1.0)
--- NOTE | 2022-12-17 14:10 | NUR ---
Palliative Consult. Met with Sammie, pt and Jeaneth ECHEVARRIA to discuss GOC. Currently pt is a Full Code. Reviewed what this would entail and hCely stated they had made a living will and did not want intubation or intervention if life could not have quality. She will be talking with the family concerning code status. She stated that she knew pt was having a harder time and that the episode yesterday CRUISE DIRECTOR was concerning. "His blood pressure was so low." We talked about this being another admit and pt having episodes that were hard to recover from. Currently pt is at [facility] with rehab. When Chely was asked how he felt he stated, "not too good". Jeaneth gave options for rehab, comfort care, hospice care at different facilities/home. Sammie stated she would talk with the family and would touch base tomorrow. Sammie voiced that she understood what had been presented and had no other questions at this time.
--- NOTE | 2022-12-17 14:31 | NUR ---
A palliative care consult was ordered. SWATHI and Rachele, beading sawyer, met with the patient and his , Sammie. The patient slept during the meeting. Rachele began by explaining the purpose of the meeting and addressed code status and goals of care. SWATHI provided education on options for hospice, if they did want to pursue comfort care and the costs of going comfort care at a facility. Sammie states that she has a lot to think about and will talk to the family about the options.
[2022-12-17 16:45] VITALS: BP 133/55; PULSE 59; TEMP 98
--- NOTE | 2022-12-17 19:23 | NUR ---
Pt more alert and less drowsy as the day progressed. Oriented to name only. Diet changed to mildly thickened liquids, minced and moist with meds crused with puree- per ST recommendations on recent previous admission. at bedside most of the day but went home early evening. Pallative care consult placed. Specialty mattress placed. NS continues to infuse to RAC without difficulty.
[2022-12-17 19:35] VITALS: BP 134/72; PULSE 62; TEMP 98.2
[2022-12-17 23:13] VITALS: BP 169/72; PULSE 64; TEMP 97.5
[2022-12-18 03:30] VITALS: BP 126/66; PULSE 59; TEMP 98
[2022-12-18 06:28] LABS: BASO # 0.1 K/mm3 (0.0-0.2); BASO % 0.5 % (0.0-2.0); EOS # 0.5 K/mm3 (0.0-0.7); EOS % 4.7 % (0.0-4.0); GRAN % 60.9 % (42.2-75.2); HEMATOCRIT 43.6 % (42.0-52.0); HEMOGLOBIN 14.5 g/dl (13.5-18.0); LYMPH # 2.5 K/mm3 (1.2-3.4); LYMPH % 24.8 % (20.0-51.0); MEAN CELL VOLUME 89 fl (80.0-100.0); MEAN CORPUSCULAR HEMOGLOBIN 30 pg (27-31); MEAN CORPUSCULAR HGB CONC 33 g/dl (33.0-37.0); MEAN PLATELET VOLUME 9.8 fl (7.4-10.4); MONO # 0.8 K/mm3 (0.1-0.6); MONO % 8.2 % (1.7-9.3); PLATELET COUNT 259 K/mm3 (130-400); RED BLOOD COUNT 4.91 M/mm3 (4.20-5.60)
[2022-12-18 06:57] LABS: ALBUMIN 2.7 gm/dL (3.4-4.8); CALCIUM 8.7 mg/dL (8.4-10.2); CREATININE, serum 0.74 mg/dL (0.72-1.25); PHOSPHOROUS 2.6 mg/dL (2.3-4.7); POTASSIUM 4.4 mmol/L (3.5-4.5)
[2022-12-18 07:50] VITALS: BP 175/69; PULSE 59; TEMP 98.4
[2022-12-18] MEDS ORDERED: NORVASC 5MG5 MG/TAB PO (08:37)
--- NOTE | 2022-12-18 08:53 | NUR ---
I met with Sammie, SWATHI Eric and discussed GOC for Chely. Sammie stated that she had talked with her and the family and they had decided to make Chely a DNR. They would like for the pt to return to [facility] and see how he does before other decisions are made. Pt was sitting up in the bed and did have some interaction of how he felt and issues he had with drinking fluids. He also stated that if he drinks through the day he is then up through the night having to urinate. Sammie suggested wearing Depends. Dr. Arguelles notified that pt was wanting DNR.
--- NOTE | 2022-12-18 09:09 | NUR ---
The hospitalist is ready to discharge the patient today. SWATHI and Rachele, folded towel machine operator, followed up with the patient's , Sammie. Sammie states that she talked to the patient about his code status and the family. The patient is agreeable to being a DNR. She had some more questions about costs at a facility, if the patient went comfort care. SWATHI and Rachele answered all questions. Sammie confirms plan to return back to [facility] today to resume his skilled stay. The hospitalist was updated on on the patient's desired code status. The patient is to discharge today, 12/18, back to [facility] to resume his skilled stay. Transportation was scheduled at 1100, via [facility]. SWATHI informed the patient's and RN of the time. No additional needs at this time.
--- NOTE | 2022-12-18 10:31 | NUR ---
Assessment complete. Alert. Oriented to name. Denies pain. Dressings changed to BUE skin tears with vaseline gauze, telfa, and secured with soft victor m gauze. Tele SR. INT to LFA d/c'd with cath tip intact. Discharge orders rec'd for pt to return to [facility].
--- NOTE | 2022-12-18 11:58 | NUR ---
Report called to Brandie at [facility]. Pt d/c'd to [facility] via [facility] staff.
== END 2022-12-18 11:59 ==
LOC: COL.ER 13:36 → MEDICAL 16:03
PROVIDERS: Emergency Medicine; Registered Nurse; ADMIT Internal Medicine
DX: N17.9 Acute kidney failure, unspecified (principal); R53.1 Weakness; E86.0 Dehydration; I11.9 Hypertensive heart disease without heart failure; I95.9 Hypotension, unspecified; Z66 Do not resuscitate; M79.672 Pain in left foot; I25.10 Atherosclerotic heart disease of native coronary artery without angina pectoris; I48.0 Paroxysmal atrial fibrillation; I48.92 Unspecified atrial flutter; G47.33 Obstructive sleep apnea (adult) (pediatric); J45.909 Unspecified asthma, uncomplicated; K59.00 Constipation, unspecified; Z85.46 Personal history of malignant neoplasm of prostate; Z85.828 Personal history of other malignant neoplasm of skin; F03.90 Unspecified dementia, unspecified severity, without behavioral disturbance, psychotic disturbance, mood disturbance, and anxiety; Z95.5 Presence of coronary angioplasty implant and graft; Z79.899 Other long term (current) drug therapy; Z95.0 Presence of cardiac pacemaker; Z79.82 Long term (current) use of aspirin; Z79.01 Long term (current) use of anticoagulants
CPT/HCPCS: G0378; J7030